=== PATIENT | female | born 1995 | race Caucasian/White ===

== ENCOUNTER 2024-06-23 12:43 | Outpatient (CLI) | payer OTHER, SELFPAY | END 2024-06-23 12:44 | disposition home or self-care (01) | LOC: AMB 06-26 08:07 | PROVIDERS: Visit Provider Family Medicine | DX: O26.892 Other specified pregnancy related conditions, second trimester (principal); R00.2 Palpitations; Z3A.16 16 weeks gestation of pregnancy | CPT/HCPCS: A0998 ==

== ENCOUNTER 2024-06-23 13:13 | Emergency (ER) | payer OTHER, SELFPAY ==
[2024-06-23 13:22] VITALS: BP 144/77; PULSE 89; RESP 18; TEMP 37.2; O2SAT 99; BMI 25.4
--- NOTE | 2024-06-23 13:45 | ED.GENADULT ---
HPI - General Adult General Chief complaint: Arrhythmia/Palpitations Stated complaint: Heart palpations Time Seen by Provider: 06/23/24 13:14 History of Present Illness HPI narrative: Patient reports feeling palpitations. This is an on?going issue for her but was especially pronounced today when she call EMS due to feeling SOB. They performed EKG and reports many PVCs. Patient is also 16 weeks preganant. 28-year-old woman presenting to the emergency department with concern of irregular heartbeats. Specifically noted to be observing PVCs today at one point she says every other beat when EMS arrived. No coupling noted. She has been having palpitations, suspects PVCs intermittently over the last 2 years but today was particularly dense. She would feel her heart ?drop? and began to feel lightheaded. Could not actually get up. And then admittedly began to panic. Did speak to friend who is a nurse and some question was raised of preeclampsia. Is 16 weeks . Working with center. This is her 1st . Does arrive with a blood pressure 144/77. May have felt what could be PACs as a fluttering past as well. Lab draw in May of this year did include a hemoglobin but no chemistries. No recent thyroid studies. Admittedly has not been doing the best job of hydrating over the last couple of days. Does not drink alcohol. No longer smoking and has cut back on stimulants. Admittedly sleep can be a challenge having overnight shifts in her work. 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 [employer] Home Medications ?Medication ?Instructions ?Recorded ?Confirmed vit no.95-ferrous 1 tab PO DAILY 06/23/24 06/23/24 fumarate 28 mg-folic acid 800 mcg tablet () Previous Rx's ?Medication ?Instructions ?Recorded labetalol 100 mg tablet 100 mg PO BID-TID PRN #12 tabs 06/23/24 Allergies Allergy/AdvReac Type Severity Reaction Status Date / Time No Known Drug Allergies Allergy Verified 06/23/24 15:32 Review of Systems Status of ROS: Reports: 6 or more systems reviewed and unremarkable except as noted in History and below [facility] Social History Smoking Status: Former smoker Do you use any of these nicotine containing products: Vaping Products How often do you have a drink containing alcohol: never AUDIT-C Alcohol total score: 0 Non-prescribed substance use: denies use Exam Narrative: Exam Narrative: Pleasant. NAD. Speaking easily. Breathing easily. Lungs appear to be clear. Heart in regular rate and rhythm. Cranial nerves 2-12 intact. Lower extremities without notable edema. She is well-perfused. Const: Vital Signs, click to edit/add: Vital Signs - 24 hr 06/23/24 13:22 Temperature 98.9 F Pulse Rate [Pulse Oximeter] 89 Respiratory Rate 18 Blood Pressure [Ri ght Upper Arm] 144/77 H Pulse Oximetry 99 Oxygen Delivery Me thod Room Air Documenting provider has reviewed patient's vital signs: yes Course Vital Signs Vital signs: Initial Vital Signs Temperature 98.9 F 06/23/24 13:22 Temperature Source Temporal Artery Scan 06/23/24 13:22 Pulse Rate 89 06/23/24 13:22 Respiratory Rate 18 06/23/24 13:22 Blood Pressure 144/77 H 06/23/24 13:22 Blood Pressure Mean 99 06/23/24 13:22 Pulse Oximetry 99 06/23/24 13:22 Oxygen Delivery Method Room Air 06/23/24 13:22 Vital Signs Temperature 98.9 F 06/23/24 13:22 Pulse Rate 89 06/23/24 13:22 Respiratory Rate 18 06/23/24 13:22 Blood Pressure 144/77 H 06/23/24 13:22 Pulse Oximetry 99 06/23/24 13:22 Oxygen Delivery Method Room Air 06/23/24 13:22 Temperature 98.9 F 06/23/24 13:22 Pulse Rate 82 06/23/24 16:00 Respiratory Rate 16 06/23/24 16:00 Blood Pressure 102/64 06/23/24 16:00 Pulse Oximetry 100 06/23/24 16:00 Oxygen Delivery Method Room Air 06/23/24 13:22 Medications Administered Medications: Discontinued Medications Generic Name Dose Route Start Last Admin Trade Name Freq PRN Reason Stop Dose Admin Sodium Chloride 1,000 mls @ 1,000 mls/hr 06/23/24 14:46 06/23/24 15:45 0.9 % Sodium Chloride 1000 Ml IV 06/23/24 15:45 Infused .Q1H ONE Infusion Medical Decision Making MDM Narrative Medical decision making narrative: Does sound as though clear diagnosis of PVCs, symptomatic. Did discuss options for further evaluation. Can offer IV hydration and cardiac monitoring. Monitor for other arrhythmia. Check chemistries, TSH. During time of monitoring, blood pressure improved. Last checked at 102 systolic. Would not appear to be related to preeclampsia. No further labs collected in this regard. Chemistries are normal. TSH still pending. Pending also magnesium level. Discussed options for continued monitoring or quantification of suspected PVCs. Ultimately settled on placing a ZIO patch. She will continue to be traveling and would like to have more information before upcoming trip as well. Pending magnesium level and TSH at time of discharge See patient discharge plan for further discussion Stay well-hydrated. Limit stimulants. Try to get quality and regular sleep. It is okay to get in a little heart pumping exercise daily. Return ZIO patch when monitoring complete and follow-up probably a week later with primary care/OB for review of results. I am not certain that abortive measures as described would be effective to stop PVCs but could be tried. Return for recurrence of persistent, dense, symptoms. Lab Data Lab results reviewed: Yes I reviewed the patient's lab results Labs: Lab Results 06/23/24 06/23/24 Range/Units 14:58 16:22 Hgb 13.7 (12.0-16.0) gm/dL Sodium 135 (135-149) mmol/L Potassium 3.9 (3.6-5.1) mmol/L Chloride 105 (96-114) mmol/L Carbon Dioxide 23 (20-32) mmol/L Anion Gap 7 (7-15) mEq/L BUN 8 (5-24) mg/dL Creatinine 0.6 (0.5-1.5) mg/dL Estimated Creat Clear 119.47 Estimated GFR 125 ml/min Glucose 92 (60-115) mg/dL Calcium 9.0 (8.4-10.6) mg/dL Magnesium 1.9 (1.5-2.6) mg/dL TSH 2.550 (0.270-4.20) uIU/mL Lab Acknowledgement Test Added ECG Data Attestation: I personally reviewed and interpreted this ECG as follows: (Normal sinus rhythm. Looks like there is sinus arrhythmia. Rate of 92.) Discharge Plan Discharge Clinical Impression: Symptomatic PVCs Patient Disposition: Home w/ Parent or Adult Condition: Improved Instructions: Premature Ventricular Contractions (ED) Additional Instructions: Stay well-hydrated. Limit stimulants. Try to get quality and regular sleep. It is okay to get in a little heart pumping exercise daily. Return ZIO patch when monitoring complete and follow-up probably a week later with primary care/OB for review of results. I am not certain that abortive measures as described would be effective to stop PVCs but could be tried. Return for recurrence of persistent, dense, symptoms. Prescriptions: New labetalol 100 mg tablet 100 mg PO BID-TID PRNQty: 12 0RF No Action PNV cmb#95-ferrous fumarate-FA [] 28 mg iron- 800 mcg tablet 1 tab PO DAILY Follow Up/Referrals: Provider,Not a Local [Primary Care Provider] - Stand Alone Forms: [employer] Info Instructions
--- OUTSIDE RECORDS SUMMARY | 2024-06-23 14:53 | XMS_ITS | Encounter Summary ---
Author Organization [facility], [facility] Address [address] [place] [address] Care Team Providers Care Director Loan Name Role Phone Needs Pcp, Assignment Primary Care Provider [phone] Encounter Details Date Type Department Care Team (Late st Contact Info) Description 04/06/2024 [facility] [address] [place] [address] Mychart, [place] [address] Social History Tobacco Use Types Packs/Day Years Used Date Smoking Tobacco: Former Cigarettes Smokeless Tobacco: Never Comments:1pk/2weeks; Stopped vaping 2020 Alcohol Use Standard Drinks/Week Comments Not Currently 0 (1 standard drink = 0.6 oz pur e alcohol) Sober x 3 years PHQ-2 Answer Date Recorded PHQ-2 Score 0 12/17/2022 Depression Answer Date Recor ded Last EPDS Total Score 10 05/08/2024 Last EPDS Self Harm Result Not on file 05/08 Comments No Sex and Gender Information Value Date Recorded Sex Assigned at Not on file Legal Sex Female 1:07 PM CDT Gender Identity Not on file Sexual Orientation Not on file Occupation Industry Job Start Date Job End Date Student Not on file Not on file 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
--- OUTSIDE RECORDS SUMMARY | 2024-06-23 14:53 | XMS_ITS | Continuity of Care Document ---
Author Organization [place] - [employer], Main Office Address [address] [place] [phone] Assessment Encounter Date Assessment Date Assessment LastModified by Organization Details LastModified Time 06/20/2024 06/20/2024 A: 28yo with SIUP at 16 weeks with reassuring maternal and status P: - RTC in 4 weeks. - Reviewed ISAEL. ISAEL of 12/06/24 based on LMP and early dating US. - Discussed genetic screening. Had this done with previous provider, [facility]. 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 Declines wanting to see a genetic counselor. - Discussed nutrition and exercise in . - Discussed constipation relief measures including increasing fiber, hydration, exercise, and dietary changes. - Reviewed diet diary. - Discussed with implants. Her implants are beneath her muscle and does not interfere with ability to breastfeed. - Reviewed recommended immunizations. She is planning to vaccinate. - Reviewed Covid protocols. - Discussed anatomy scan for 20 weeks. - Discussed her ctvgow-in-azc genetic heart condition and if that affects her baby heart development. - Discussed handout. - Discussed FPNV labs results that were performed with [facility]. - Reviewed THC/tobacco policy. - Discussed peds care. -Discussed car seats. - Discussed intercourse in /PP. - Discussed normal vs abnormal vaginal discharge during . - Discussed how untreated vaginal infections affect and labor. - Call with questions or concerns. Time spent: 70 minutes education time spent: 10 minutes Performed by Konstantin Weeks CNM under the direct supervision of Rylee Trejo APRN, CNM [email or web address] Not available 06/20/2024 19:24:00 Plan of Treatment Reminders Order Date Submit Date Provider Last Modified By Organization Details Last Modified Time Details Appointments Ultraso und Anatomy Scan 2024 04:00P M Ultrasound Not available Not available Not available PNV 2024 05:00P M Recovery Assistant 1 Not available Not available Not available Lab None recorde d. Referral None recorde d. Procedures None recorde d. Surgeries None recorde d. Imaging None recorde d. Medication Orders None recorde d. Patient TargetsNo targets recorded. Patient InstructionsNo instructions recorded. Reason for Referral None Reported. Problems Name Problem SNOMED Code Status Onset Date Resolution Date Notes Provider Name and Address Organization Details Recorded Time 17907861 Active 025 Morenita Magallanes [address] [place] [address], [phone] , [employer] 15:34:24 Problem Notes None recorded. Procedures Surgical History Date Name Laterality Status Provider Name and Address Organization Details Recorded Time 12/21/19 24 Date of Last Pap Smear completed Morenita Magallanes [address] [place] [address], [phone], [employer] 05/25/2024 16:00:29 Breast augmentation w/implt completed Morenita Magallanes [address] [place] [address], [phone], [employer] 05/25/2024 15:24:53 Imaging Results None recorded. Procedure Notes None recorded. Medical Equipment None Reported. Allergies No known drug allergies Medications Name Sig Start Date Stop Date Status Note LastModified by Organization Details LastModified Time Claravis 40 mg capsule TAKE ONE CAPSULE BY MOUTH ONCE DAILY WITH FOOD 05/25 completed Not Available Not Available Not Available Unisom (doxylamine) prn active Not Available Not Available Not Available + DHA active Not Available Not Available Not Available [employer] 45 mg-3.75 mg-50 mg chewable tablet Take as needed by oral route. active Not Available Not Available No t Available Vitals Date Recorded Body weight Body mass index (BMI) Body height Heart rate Systolic blood pressure Diastolic blood pressure Provider Name and Address Organization Details Last Updated DateTime 5 26197.6 7076 g 25.4 kg/m2 162.56 cm 68 /min 120 mm[Hg] 80 mm[Hg] ChaDania Page [address] [place], [phone], [employer] 11:50:29 Social History Question Answer Notes LastModified by Jason dockery Details LastModified Time Tobacco Smoking Status Former Smoker vaping from 2021 to 01/2024 Morenita Magallanes [address] [place], [address], [employer] 05/25/2024 16:40:58 What Is Your Level Of Alcohol Consumption? None Information not available 05/25/2024 What Is Your Level Of Caffeine Consumption? Moderate 1 Cup Coffee Daily, Black Tea Occasionally Information not available 05/25/2024 Are You Currently Employed? Yes Information not available 05/25/2024 What Type Of Diet Are You Following? SPECIFIC Lactose Free Information not available 05/25/2024 What Is The Highest Grade Or Level Of School You Have Completed Or The Highest Degree You Have Received? 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 3-4 Times Per Week Walking, Weight Lifting 3 Days/week Information not available 05/25/2024 When Did You Quit Smoking? 1-5yearssin celastcigar ette 01/2024 Then Nicorette Gum Until 4-5w Information not available 05/25/2024 Do You Work In Healthcare? Yes Information not available 05/25/2024 How Many Children Do You Have? 0 Information not available 05/25/2024 Do You Have Any Pets? Yes 2 Cats Information not available 05/25/2024 What Is Your Relationship Status? Information not available 05/25/2024 Do You Use Your Seat Belt Or Car Seat Routinely? Yes Information not available 05/25/2024 Do You Feel Stressed (tense, Restless, Nervous, Or Anxious, Or Unable To Sleep At Night)? [id number] Information not available 05/25/2024 Do You Use Any Illicit Or Recreational Drugs? No Information not available 05/25/2024 Are You Currently In School? No Information not available 05/25/2024 What Is Your Status? Information not available 05/25/2024 Do You Feel Safe In Your Relationship? Yes Information not available 05/25/2024 Sex: Female Functional Status Question Answer Note LastModified by Organization D etails LastModified Time Are you able to care for yourself? Yes Information not available 05/25/2024 What is your exercise level? Moderate Information not available 05/25/2024 Mental Status None recorded. Family History Relationship Description Onset Age of this Age Resolved Age Notes LastModified by Organization Details LastModified Time Mother Stillbirth 5 months Not available 05/25/2024 16:42:49 Mother Premature delivery 2 babies born at 36w Not available 05/25/2024 16:43:01 Mother Depressive disorder after her mom's dad and sister and throug h menopa use Not available 05/25/2024 16:43:45 Mother Recurrent miscarriage had severa l miscar riages Not available 05/25/2024 16:44:35 Father Alcoholism Not availa ble 05/25/2024 16:44:00 Medical History Condition Response Allergies (Food, seasonal, environmental ) N Eating Disorder N Drug/Latex Allergies/Reactions N History of abnormal pap Y Headaches N GI Problems Y Gynecological History Statement/Question Response Abnormal Pap Y Flow Light Frequency of Cycle (Q days) 29 STIs/STDs N Menses Monthly Y Date of Last Pap Smear 12/21/2023 Duration of Flow (days) 2 Age at Menarche 13 LMP Definite Obstetrics History GPAL:G 1 P 0 0 0 0 Past Encounters Encounter ID Performer Location Encounter Start Date Encounter Closed Date Diagnosis/Indication Diagnosis SNOMED-CT Code Diagnosis ICD10 Code Diagnosis Note [id number] Morenita Magallanes Main Office [address] [place] [phone] 05/25/2024 15:55:42 05/25/2024 17:30:17 [id number] SANIA RIGGS Main Office [address] [place] [phone] 06/20/2024 10:50:18 06/20/2024 16:24:20 Normal 49892355 Z34.02 Z3A.16 Health Concerns Section Related Observation LastModified by Organization Yefri nava LastModified Time None Recorded Concern Status LastModified by Organization Details LastModified Time None Recorded Payers Encounter Date Sequence Insurance Name Policy Number Policy Hidalgo Covered Member ID Hidalgo Member ID Guarantor Name 06/20/2024 1 [facility] [id number] Dianelys Verdin [id number] Dianelys Verdin Notes Date Note Type Note Provider Name and Address Organization Details Recorded Time 06/20/2024 text/html Pt presents with Bart for PNV today. Reports: nausea decreased once entering the second trimester. Taking senna and metamucil for constipation. Reports having BM's every 2-3 days. Reports eating beans, chickpeas, apples, and other fruits for fiber. She eats at least 15grams of fiber daily. She drinks Naked with less sugar smoothies. She drinks water, herbal tea, 1 cup of coffee, Propel daily. She drinks protein shakes during work, and eats protein bar and nuts for snacks. She eats a lot of protein daily with a variety of fruits, vegetables, whole-grain, and proteins. She goes on daily walks for exercise. She just moved into a new home so she has been unpacking boxes lately. She plans to start weight lifting, biking, yoga and doing the treadmill again. LMP: 02/28/25. Bart's father had open heart surgery because he has bicuspid aortic valve (BAV) which is a genetic condition where he has 2 heart valves, instead of 3. Bart has not been tested for this condition and does not have any cardiac symptoms. Bart does not plan on getting tested for this condition unless he starts showing symptoms. She has an at home doppler at home and listens to baby heartbeat once a week. 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 She has started to feel fluttering. She has breast implants underneath her muscles specifically to allow for . Reports noticing an ingrown hair lump next to her labia, 2 months ago, after shaving. States it looked like a white head, so she put benzyl peroxide on it without relief. She is concerned that it may be a cyst or infected. Denies abnormal discharge or vaginal odor. Denies pain to the lump. Reports itchiness to the lump. Denies any changes since shaving again. Denies noticing any other lumps to her labia or vagina. Questions: with implants, consultants, appropriate weight gain during , GDM treatment, normal vs abnormal vaginal discharge, vaginal infections during and its effect on and labor, PP expectations and procedures at [facility]. Endorses movement. No further questions or concerns at this time. RYLEE WU, ROSALBA-WILDER [address] [facility] [place], [address], [employer] 06/20/2024 19:26:44 OBGyn Episode Ob Episode Information Episode Created Date Number of Fetuses Patient Bloodtype Patient rh Status Prepregnancy Weight lbs Domestic Partner Domestic Partner Phone Father Name Foster Care Therapist Status 05/26/19 25 1 A Positive Bart OPEN Fetus Data First Name Last Name Admitted to NICU Weight (g) Sex Living Outcome Pediatric Complications Fetus ID Race Codes Race Delivery Type [id number] Isael Calculation Initial Isael Date Initial Exam Date Initial Exam Provider Initial Ultrasound Date Last Menstrual Period Date Ultra Sound Weeks Gestation 12/05/2024 05/25/2024 04/28/2024 02/29/2024 8 Eighteen To Twenty Week Isael Update Ultra Sound Date Fundal Height At Umbil Quickening Date Ultra Sound Latest Weeks Gestation Final Isael Confirmed By Final Isael Confirmed Date Final Isael Date Ultra Sound Latest Days Gestation 0 0 Pre- Flowsheet Flowsheet Date 05/25/2024 Lopez Score Blood Edema Fundus Height Fundus Units Glucose Ketones Leukocytes Nitrite Labor Signs Protein Cervic Dilation Cervic Effacement Cervic Station Type Weight in lbs Pre/Post Dialysis Refused Stated 125.127961533864 BP Diastolic BP Location Tested BP Systolic BP Type Fetus Heart Rate Present Fetus Movement Comments Flowsheet Date 06/20/2024 Lopez Score Blood Edema Fundus Height Fundus Units Glucose Ketones Leukocytes Nitrite Labor Signs Protein Cervic Dilation Cervic Effacement Cervic Station none none Type Weight in lbs Pre/Post Dialysis Refused 148.203453809334 BP Diastolic BP Location Tested BP Systolic BP Type 80 120 Fetus Heart Rate Present A 150 Fetus Movement A Yes Comments fundus U-2 Menstrual History Last Menstrual Date Menses Monthly On Bcp Conception Prior Menses Frequency Hcg Plus Date Menarche Onset Age 1202/29/2024 true 29 Delivery Information Delivery Date Delivery Type Labor Anesthesia Weeks Gestation Incision Type Labor Labor Length Hrs Delivered By Post Complications Tubal Sterilization Discharge Date Comments Discharge Information Feeding Method Contraceptive Method Maternal HG B and HCT Levels
--- OUTSIDE RECORDS SUMMARY | 2024-06-23 14:53 | XMS_ITS | Data Portability ---
Author Organization [employer], [employer] Address [address] [place] [address] Assessment Encounter Date Assessment Date Assessment LastModified by Organization Details LastModified Time 05/25/2024 05/25/2024 History and intake completed. Reviewed manual, diet diary instructions and class information. Information also emailed to Monse. All midwifery consent forms signed and questions answered. Monse and Bart are interested in hiring health safety engineer software engineer intern. Monse has some concerns regarding not doing continuous monitoring in labor and what happens in emergency but she really does want to have an unmedicated . Discussed that if there is something concerning with FHR that staff would listen more frequently. Reviewed emergency equipment, medications at center and proximity to [facility] and [facility]. OR is one thing that is not available at center. Encouraged her to continue to bring up her feelings and concerns and that ultimately want her to feel comfortable/conf ident with where she chooses to deliver. Discussed heart palpitations and suggested monitoring for increased frequency. Reassuring that she is not dizzy or light headed and informed this can be normal in first trimester. Can refer to cardiology if she is concerned or if it is happening more frequently. Recommended electrolytes daily for headaches and heart palpitations. Suggested magnesium citrate for constipation. Bart asks about making sure he gets Monse to the center. Will get information through childbirth ed and visits about when to call in labor. Reassured him that with first baby there will likely be lots of time to get to the center. 34 minutes spent with Monse. Not available 05/25/2024 17:36:29 06/20/2024 06/20/2024 A: 28yo with SIUP at [...] scan for 20 weeks. - Discussed her pjfhet-ps-vtr genetic heart condition and if that affects [...] available Not available PNV 2024 05:00P M Corporate Travel Manager 1 Not available Not available Not available Lab None recorde d. Referral None recorde d. Procedures None recorde d. Surgeries None recorde d. Imaging None recorde d. Medication Orders None recorde d. Patient TargetsNo targets recorded. Patient Instructions Encounter Date Encounter Id Patient Instructions Last Modified By Organization Details Last Modified Time 05/25/2024 [id number] 1. FPNV schedule d on 06/20/24. Anatomy scan and PNV also scheduled in July. 2. Complete diet diary. 3. Call with questions/concern kory joshua Not available 05/25/2024 17:16:49 Reason for Referral None Reported. Problems Name Problem SNOMED Code Status Onset Date Resolution Date Notes Provider Name and Address Organization Details Recorded Time 74828700 Active 025 [place], [address] , [employer] 15:34:24 Problem Notes None recorded. Procedures Surgical History Date Name Laterality Status Provider Name and Address Organization Details Recorded Time 12/21/19 Date of Last Pap Smear completed Moren[place], [address], [employer] 05/25/2024 16:00:29 Breast augmentation w/implt completed [place], [address], [employer] 05/25/2024 15:24:53 Imaging Results None recorded. Procedure [...] active Not Available Not Available Not Available [employer] 45 mg-3.75 mg-50 mg chewable tablet Take as needed by oral route. active Not Available Not Available No t Available Vitals Date Recorded Body height Body mass index (BMI) Body weight Provider Name and Address Organization Details Last Updated DateTime 05/25/2024 162.56 cm 21.5 kg/m2 75321.05 g Morenita Magallanes [address] [place] [address], [phone], [employer] 05/25/2024 15:58:37 Date Recorded Body weight Body mass index (BMI) Body height Heart rate Systolic blood pressure Diastolic blood pressure Provider Name and Address Organization Details Last Updated DateTime 5 33053.6 7076 g 25.4 kg/m2 162.56 cm 68 /min 120 mm[Hg] 80 mm[Hg] [place], [address], [employer] 11:50:29 Social History Question Answer Notes LastModified by Organizat ion Details LastModified Time Tobacco Smoking Status Former Smoker vaping from 2021 to 01/2024 Morenita Magallanes [address] [facility] [place], [address], [employer] 05/25/2024 16:40:58 What Is Your Level Of [...] Or The Highest Degree You Have Received? [id number] Information not available 05/25/2024 What Is Your [...] Anxious, Or Unable To Sleep At Night)? [id number] Information not available 05/25/2024 Do You Use [...] seasonal, environmental ) N Eating Disorder N History of abnormal pap Y Headaches N GI Problems Y Drug/Latex Allergies/Reactions N Gynecological History Statement/Question Response Abnormal Pap Y [...] SNOMED-CT Code Diagnosis ICD10 Code Diagnosis Note [id number] Morenita Magallanes Main Office [address] [place] [address] 05/25/2024 15:55:42 05/25/2024 17:30:17 [id number] SANIA RIGGS Main Office [address] [place] [address] 06/20/2024 10:50:18 06/20/2024 16:24:20 Normal 83229929 Z34.02 Z3A.16 Health Concerns Section Related Observation LastModified by Organization Yefri nava LastModified Time None Recorded Concern Status LastModified by Organization Details LastModified Time None Recorded Advance Directives Directive None Recorded Payers Encounter Date Sequence Insurance Name Policy Number Policy Hidalgo Covered Member ID Hidalgo Member ID Guarantor Name 05/25/2024 1 [facility] [id number] Dianelys Verdin [id number] Dianelys Verdin 06/20/2024 1 [facility] A0021 Dianelys Verdin [id number] Dianelys Verdin Notes Date Note Type Note Provider Name and Address Organization Details Recorded Time 05/25/2024 text/html Telehealth visit with audio and video with Della. LMP 02/29/2024 with regular 29 day cycles (occasionally 30 or 31). Not actively trying or preventing . Transfer into care from , had labs, NIPT and early ultrasound. Early ultrasound ISAEL 12/06/2024. Carrier screening showed she is a carrier for intermediate X; has one copy that has 30 (normal) and one copy has 50. This is a precursor for fragile X (at 200 copies) which could happen down the line. She was advised to see a genetic counselor but she did not feel this was necessary. Monse reports nausea, bloating, constipation, headaches, dizziness (if stands up too quickly), mood changes and fatigue. Getting adequate food/fluids in. Works rotating days/nights and sometimes has difficulty sleeping. Monse states she has been having heart palpitations and they are worse during sex. They started prior to but seem to be more frequent now. She did mention to previous provider. Previous provider did not hear murmur but Monse thought she heard one when she listened which would be new for her. Plans to breastfeed and does not have concerns about her anatomy. Has breast implants that are under the muscle and did this so that it would not affect the breast tissue. Says her nipples are very light pink and the color hasn't really changed so far but she has noticed a ridge around and they are more everted. Would really like to exclusively breastfeed for first 3 months at least. Last pap 01/2024, normal and HPV negative. Has had abnormal paps in the past with LSIL, ASCUS and + high risk HPV. 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 Eats prunes and fiber. Family history significant for stillbirth, miscarriages, , alcoholism, depression. Bart has a nephew with severe autism and also has addiction, alcoholism and anxiety/depression on his side. Morenita Magallanes [address], [place], [address], [employer] [facility] 05/30/2024 10:42:19 06/20/2024 text/html Pt presents with Bart for [...] and labor, PP expectations and procedures at [facility]. Endorses movement. No further questions or concerns at this time. RYLEE TREJO, ROSALBA-CNM [address], [place], [address], [place] [employer] [facility] 06/20/2024 19:26:44 OBGyn Episode Ob Episode Information Episode Created Date Number of Fetuses Patient Bloodtype Patient rh Status Prepregnancy Weight lbs Domestic Partner Domestic Partner Phone Father Name Hospice Plan Administrator Status 05/26/19 25 1 A Positive Bart [...] Weight in lbs Pre/Post Dialysis Refused Stated 125.603011577508 BP Diastolic BP Location Tested BP Systolic BP Type Fetus Heart Rate Present Fetus Movement Comments Flowsheet Date 06/20/2024 Lopez Score Blood Edema Fundus Height Fundus Units Glucose Ketones Leukocytes Nitrite Labor Signs Protein Cervic Dilation Cervic Effacement Cervic Station none none Type Weight in lbs Pre/Post Dialysis Refused 148.719961311295 BP Diastolic BP Location Tested BP Systolic [...]
--- OUTSIDE RECORDS SUMMARY | 2024-06-23 14:54 | XMS_ITS | Clinical Summary ---
Author Organization [facility] er Address [address] [place] [address] Care Team Providers Care Director Of Primary Name Role Phone Eric Phan MD Primary Care Provider [phone] Allergies No known active allergies Medications spironolactone (ALDACTONE) 100 MG tablet Take 1 tablet (100 mg total) by mouth 2 (two) times a day Active Multiple Vitamins-Mineral s (Daily Multivitamin) capsule Take by mouth Active Social History Tobacco Use Types Packs/Day Years Used Date Smoking Tobacco: Never Assessed Comments Unknown Sex and Gender Information Value Date Recorded Sex Assigned at Not on file Legal Sex Female 4:08 PM CDT Gender Identity Not on file Sexual Orientation Not on file Last Filed Vital Signs Vital Sign Reading Time Taken Comments Blood Pressure 124/75 10/06/2022 4:17 PM CDT Pulse 73 10/06/2022 4:17 PM CDT Temperature 36.8 C (98.3 F) 10/06/2022 4:17 PM CDT Respiratory Rate 16 10/06/2022 4:17 PM CDT Oxygen Saturation 98% 10/06/2022 4:17 PM CDT Inhaled Oxygen Concentration - - Weight 59.9 kg (132 lb) 10/06/2022 4:17 PM CDT Height 160 cm (5' 3) 10/06/2022 4:17 PM CDT Body Mass Index 23.38 10/06/2022 4:17 PM CDT Plan of Treatment Health Maintenance Due Date Last Done Comments COVID-19 Vaccine ( season) 2023 04/14/2021, 08/21/2020, 07/24/2020 Pap Smear 12/18/2024 12/18/2021, 01/23/2021 DTaP,Tdap,and Td Vaccines (8 - Td or Tdap) 04/28/2027 04/28/2017, 09/10/2006, 10/30/1999, Additional history exists HPV Vaccines Completed 01/30/2020, 12/06, 11/04/2018 Influenza Vaccine Completed 01/11/2024, , 01/16/2022, Additional history exists Pneumococcal Vaccine: Pediatrics (0 to 5 Years) and At-Risk Patients (6 to 49 Years) Aged Out No longer eligible based on patient's age to complete this topic Care Teams Director Of Primary Relationship Specialty Start Date End Date Eric Phan MD [address] [place] [phone] PCP - General Family Medicine 10/06/22
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
--- OUTSIDE RECORDS SUMMARY | 2024-06-23 14:54 | XMS_ITS | Encounter Summary ---
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 A foreclosure clerk will contact you to assist you in setting up this appointment. If you have not been contacted within one week or have any questions, please call [phone]. We suggest you call your health insurance company about your coverage and benefits for this appointment. Question Answer Appointment Urgency? Non-Urgent Multiple Gestation? [facility] Genetic Counselor Consult Indications for Genetic Counseling positive carrier screening Encounter Details Date Type Department Care Team (Late st Contact Info) Description 05/09/2024 Results Follow-Up [facility]-ROCK ROOM WORKER [address], [address] [place] [address] Mimi Shields APRN, CNM [address] [facility] [address] [place] [address] Social History Tobacco Use Types Packs/Day Years [...] on file documented as of this encounter Progress Notes * Mimi Shields APRN, CNM - 05/09/2024 2:56 PM CST Normal labs. Message sent to patient via [employer]. ITAL TRAY SERVICE WORKER * Mimi Shields APRN, CNM - 05/09/2024 10:51 AM CST Normal initial labs. Message sent via [employer]. 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
--- OUTSIDE RECORDS SUMMARY | 2024-06-23 14:54 | XMS_ITS | Encounter Summary ---
Author Organization [facility] Address [address] [address] Care Team Providers Care Pilot Plant Operator Name Role Phone Needs Pcp, Assignment Primary Care Provider Encounter Details Date Type Department Care Team (Late st Contact Info) Description 05/08/2024 12:20 PM CROTCH PIECE BASTER Lab Visit [facility] [address] [place] [address] Supervision of normal first , antepartum Social History Tobacco Use Types Packs/Day Years [...] on file documented as of this encounter Procedures Procedure Name Priority Date/Time Associated Diagnosis Comments RUBELLA IMMUNE STATUS, IGG Routine 05/08/2024 12:32 PM CROTCH PIECE BASTER Supervision of normal first , antepartum ANTIBODY SCREEN Routine 05/08/2024 12:32 PM CROTCH PIECE BASTER Supervision of normal first , antepartum BLOOD TYPE Routine 05/08/2024 12:32 PM CROTCH PIECE BASTER Supervision of normal first , antepartum HORIZON CARRIER SCREENING Routine 05/08/2024 12:32 PM CROTCH PIECE BASTER Supervision of normal first , antepartum PANORAMA NIPT Routine 05/08/2024 12:32 PM CROTCH PIECE BASTER Supervision of normal first , antepartum SYPHILIS PANEL (WITH REFLEX) Routine 05/08/2024 12:32 PM CROTCH PIECE BASTER Supervision of normal first , antepartum SYPHILIS PANEL (WITH REFLEX) Routine 05/08/2024 12:32 PM CROTCH PIECE BASTER Supervision of normal first , antepartum HEPATITIS B SURFACE ANTIBODY Routine 05/08/2024 12:32 PM CROTCH PIECE BASTER Supervision of normal first , antepartum HIV 1/2 AG/AB 4TH GEN Routine 05/08/2024 12:32 PM CROTCH PIECE BASTER Supervision of normal first , antepartum COMPLETE BLOOD COUNT-NO DIFF Routine 05/08/2024 12:32 PM CROTCH PIECE BASTER Supervision of normal first , antepartum HEPATITIS C ANTIBODY, WITH REFLEX Routine 05/08/2024 12:32 PM CROTCH PIECE BASTER Supervision of normal first , antepartum HBSAG (HEPATITIS B SURFACE AG) Routine 05/08/2024 12:32 PM CROTCH PIECE BASTER Supervision of normal first , antepartum HEPATITIS B CORE,AB Routine 05/08/2024 1 2:32 PM CROTCH PIECE BASTER Supervision of normal first , antepartum HGB A1C Routine 05/08/2024 12:32 PM CROTCH PIECE BASTER Supervision of normal first , antepartum documented in this encounter Results * Syphilis Panel, with Reflex (05/08/2024 12:32 PM CROTCH PIECE BASTER) Pathologist [facility] Treponema Screen Interpretation Non Reactive Non Reactive 05/08/2024 5:57 PM CROTCH PIECE BASTER [facility] Syphilis Panel Comment Negative - No serological evidence of syphilis. 05/08/2024 5:57 PM CROTCH PIECE BASTER [facility] Blood Venipuncture / Unknown 05/08/2024 12:32 PM CROTCH PIECE BASTER 05/08/2024 12:32 PM CROTCH PIECE BASTER us Mimi Shields APRN, CNM LAB_1 Final Result [facility] [address] [place] [address] * Horizon Carrier Screening (05/08/2024 12:32 PM CROTCH PIECE BASTER) Pathologist [facility] Horizon Carrier Screening See Scanned Report 05/18/2024 4:47 PM CDT [facility]. Blood Venipuncture / Unknown 05/08/2024 12:32 PM CROTCH PIECE BASTER 05/08/2024 12:32 PM CROTCH PIECE BASTER us Mimi Shields APRN, CNM LAB_1 Final Result [facility]. [address] [place] [address] * Panorama NIPT (05/08/2024 12:32 PM CROTCH PIECE BASTER) [facility] Panorama NIPT See Scanned Report 05/14/2024 7:14 AM CDT [facility]. Blood Venipuncture / Unknown 05/08/2024 12:32 PM CROTCH PIECE BASTER 05/08/2024 12:32 PM CROTCH PIECE BASTER us Mimi Shields APRN, WILDER LAB_1 Final Result [employer] [address] [place] [address] * Rubella Immune Status, IgG (05/08/2024 12:32 PM CROTCH PIECE BASTER) Pathologist [facility] Rubella Units 1.61 05/09/2024 9:48 AM CROTCH PIECE BASTER [facility] Comment:The magnitude of the measured result, above the cutoff, is not indicative of the amount of antibody present. Rubella Intepretation Immune Immune 05/09/2024 9:48 AM CROTCH PIECE BASTER [facility] Blood Venipuncture / Unknown 05/08/2024 12:32 PM CROTCH PIECE BASTER 05/08/2024 12:32 PM CROTCH PIECE BASTER Mimi Shields APRN, WILDER LAB_1 Final Result Performing Organization Address [facility]/ZIP Co de Phone Number [facility] [address] [place] [address] * HIV 1/2 Ag/Ab 4th Generation (05/08/2024 12:32 PM CROTCH PIECE BASTER) [facility] HIV 1/2 Antigen/Antib saundra (4th generation) Negative (Non Reactive) Negative (Non Reactive) 05/08/2024 5:32 PM CROTCH PIECE BASTER [facility] Comment:HIV-1 p24 Antigen an d HIV-1/HIV-2 Antibody not detected Blood Venipuncture / Unknown 05/08/2024 12:32 PM CROTCH PIECE BASTER 05/08/2024 12:32 PM CROTCH PIECE BASTER Mimi Shields APRN, WILDER LAB_1 Final Result Performing Organization Address City/[facility] Co de Phone Number [facility] [address] [place] [address] * Hgb A1C (05/08/2024 12:32 PM CROTCH PIECE BASTER) [facility] Hemoglobin A1C 5.0 <=5.6 % 05/08/2024 9:00 PM [facility] PIECE B[facility] Estimated Average Glucose (Calc) 97 < 117 mg/dL 05/08/2024 9:00 PM CROT[employer] PIECE BASTER [facility] Comment:Estimated average gl ucose (eAG) converts A1c into glucose units (mg/dL) and estimates average glucose over the past approximately 3 months. The eAG reference interval (<117 mg/dL) corresponds to an A1c of <5.7%. Blood Venipuncture / Unknown 05/08/2024 12:32 PM CROTCH PIECE BASTER 05/08/2024 12:32 PM CROTCH PIECE BASTER Mimi Shields APRN, WILDER LAB_1 Final Result Performing Organization Address [facility]/ZIP Co de Phone Number [facility] [address] * Hepatitis C Antibody, with Reflex (05/08/2024 12:32 PM CROTCH PIECE BASTER) Hepatitis C Antibody Negative (Non Reactive) Negative (Non Reactive) 05/08/2024 5:32 PM CROTCH PIECE BASTER [facility] Comment:Antibodies to HCV no t detected. Does not exclude the possiblity of exposure to HCV. Blood Venipuncture / Unknown 05/08/2024 12:32 PM CROTCH PIECE BASTER 05/08/2024 12:32 PM CROTCH PIECE BASTER Mimi Shields APRN, WILDER LAB_1 Final Result Performing Organization Address [facility]/ZIP Co de Phone Number [facility] [address] * Hepatitis B Core Antibody (05/08/2024 12:32 PM CROTCH PIECE BASTER) Hepatitis B Core Antibody Negative (Non Reactive) Negative (Non Reactive) 05/08/2024 5:55 PM CROTCH PIECE BASTER [facility] Blood Venipuncture / Unknown 05/08/2024 12:32 PM CROTCH PIECE BASTER 05/08/2024 12:32 PM CROTCH PIECE BASTER Mimi Shields APRN, WILDER LAB_1 Final Result Performing Organization Address City/[facility]/ZIP Co de Phone Number [facility] [address] [place] [address] * Hepatitis B Surface Antibody (05/08/2024 12:32 PM CROTCH PIECE BASTER) Pathologist [facility] Hep B Surf Antibody Result 50.9 mIU/mL 05/08/2024 5:56 PM CROTCH PIECE BASTER [facility] Hep B Surf Antibody Interpretation Positive (Reactive) Positive (Reactive) 05/08/2024 5:56 PM CROTCH PIECE BASTER [facility] Comment:Individual is consid ered immune to HBV infection. Blood Venipuncture / Unknown 05/08/2024 12:32 PM CROTCH PIECE BASTER 05/08/2024 12:32 PM CROTCH PIECE BASTER Mimi Shields APRN, CNM LAB_1 Final Result Performing Organization Address [facility] Co de Phone Number [facility] [address] [place] [address] * Hepatitis B Surface Antigen (05/08/2024 12:32 PM CROTCH PIECE BASTER) Pathologist [facility] Hepatitis B Surface Antigen Negative (Non Reactive) Negative (Non Reactive) 05/08/2024 5:56 PM CROTCH PIECE BASTER [facility] Blood Venipuncture / Unknown 05/08/2024 12:32 PM CROTCH PIECE BASTER 05/08/2024 12:32 PM CROTCH PIECE BASTER Mimi Shields APRN, CNM LAB_1 Final Result Performing Organization Address [facility]/ZIP Co de Phone Number [facility] [address] [place] [address] * (ABNORMAL) Complete Blood Count-No Diff (05/08/2024 12:32 PM CROTCH PIECE BASTER) Pathologist [facility] WBC 8.5 3.5 - 10.5 x10(9)/L 05/08/2024 1:49 PM CROTCH PIECE BASTER [facility] RBC 4.33 3.90 - 5.03 x10(12)/L 05/08/2024 1:49 PM CROTCH PIECE BASTER [facility] Hemoglobin 13.7 12.0 - 15.5 g/dL 05/08/2024 1:49 PM [facility] HCT 38.4 34.9 - 44.5 % 05/08/2024 1:49 PM [facility] MCV 88.7 80.0 - 100.0 fL 05/08/2024 1:49 PM [facility] MCH 31.6 27.6 - 33.3 pg 05/08/2024 1:49 PM [facility] MCHC 35.7(H) 31.5 - 35.2 g/dL 05/08/2024 1:49 PM [facility] RDW 11.5(L) 11.9 - 15.5 % 05/08/2024 1:49 PM [facility] Platelets 224 150 - 450 x10(9)/L 05/08/2024 1:49 PM [facility] Blood Venipuncture / Unknown 05/08/2024 12:32 PM CROTCH PIECE BASTER 05/08/2024 12:32 PM CROTCH PIECE BASTER Mimi Shields APRN, CNM LAB_1 Final Result [facility] [address] [place] [address] * Blood Type (05/08/2024 12:32 PM CROTCH PIECE BASTER) ABO A 05/08/2024 7:14 PM CROTCH PIECE BASTER [facility] Positive 05/08/2024 7:14 PM CROTCH PIECE BASTER [facility] Blood Venipuncture / Unknown 05/08/2024 12:32 PM CROTCH PIECE BASTER 05/08/2024 12:32 PM CROTCH PIECE BASTER us Mimi Shields APRN, CNM LAB_1 Final Result [facility] [address] [place], [place] [address] * Antibody Screen (05/08/2024 12:32 PM CROTCH PIECE BASTER) Antibody Screen Interpretation Negative 05/08/2024 7:14 PM CROTCH PIECE BASTER [facility] Blood Venipuncture / Unknown 05/08/2024 12:32 PM CROTCH PIECE BASTER 05/08/2024 12:32 PM CROTCH PIECE BASTER us Mimi Shields APRN, CNM LAB_1 Final Result [facility] [address] [place] [address], [facility] documented in this encounter Visit Diagnoses Diagnosis Supervision of normal first , antepartum documented in this encounter Care Teams Pilot Plant Operator Relationship Specialty Start Date End Date Needs Pcp, [place] [address] PCP - General 04/28/17 documented as of this encounter
--- OUTSIDE RECORDS SUMMARY | 2024-06-23 14:54 | XMS_ITS | Continuity of Care Document ---
Author Organization [employer], Main Office Address [address] [place] [address] Assessment Encounter Date Assessment Date Assessment LastModified by Organization Details LastModified Time 05/25/2024 05/25/2024 History and intake completed. Reviewed manual, diet diary instructions and class information. Information also emailed to Monse. All midwifery consent forms signed and questions answered. Monse and Bart are interested in hiring senior field engineer record label intern. Monse has some concerns regarding not doing continuous monitoring in labor and what happens in emergency but she really does want to have an unmedicated . Discussed that if there is something concerning with FHR that staff would listen more frequently. Reviewed emergency equipment, medications at center and proximity to [facility] and [place]. OR is one thing that is not available at center. 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 Discussed [...] spent with Monse. Not available 05/25/2024 17:36:29 Plan of Treatment Reminders Order Date Submit Date Provider Last Modified By Organization Details Last Modified Time Details Appointments Ultraso und Anatomy Scan 05/14/ 2025 04:00P M Ultrasound Not available Not available Not available PNV 2024 05:00P M Fruit Packer 1 Not available Not available Not available Lab None recorde d. Referral None recorde d. Procedures None recorde d. Surgeries None recorde d. Imaging None recorde d. Medication Orders None recorde d. Patient TargetsNo targets recorded. Patient Instructions Encounter Date Encounter Id Patient Instructions Last Modified By Organization Details Last Modified Time 05/25/2024 [id number] 1. FPNV schedule d on 06/20/24. Anatomy scan and PNV also scheduled in July. 2. Complete diet diary. 3. Call with questions/concern kory lewis Not available 05/25/2024 17:16:49 Reason for Referral None Reported. Problems Name Problem SNOMED Code Status Onset Date Resolution Date Notes Provider Name and Address Organization Details Recorded Time [id number] Active 025 Morenita Magallanes [address] [place] [address], [phone] , [email or web address] 15:34:24 Problem Notes None recorded. Procedures Surgical History Date Name Laterality Status Provider Name and Address Organization Details Recorded Time 12/21/19 24 Date of Last Pap Smear completed Morenita Magallanes [address] [place] [address], [phone], [employer] 05/25/2024 16:00:29 Breast augmentation w/implt completed Morenita Magallanes [address] [place] [address], [phone], [email or web address] 05/25/2024 15:24:53 Imaging Results None recorded. Procedure [...] active Not Available Not Available Not Available Kuli Kuli 45 mg-3.75 mg-50 mg chewable tablet Take as needed by oral route. active Not Available Not Available No t Available Vitals Date Recorded Body height Body mass index (BMI) Body weight Provider Name and Address Organization Details Last Updated DateTime 05/25/2024 162.56 cm 21.5 kg/m2 67323.05 g Morenita Mgaallanes [address] [place] [place], [address], [email or web address] 05/25/2024 15:58:37 Social History Question Answer Notes LastModified by Organizat ion Details LastModified Time Tobacco Smoking Status Former Smoker vaping from 2021 to 01/2024 Morenita Magallanes [address] [place], [address], [facility] 05/25/2024 16:40:58 What Is Your Level Of [...] Or The Highest Degree You Have Received? [id number] Information not available 05/25/2024 What Is Your [...] Anxious, Or Unable To Sleep At Night)? [id number] Information not available 05/25/2024 Do You Use [...] SNOMED-CT Code Diagnosis ICD10 Code Diagnosis Note [id number] Morenita Magallanes Main Office [address] [place] [phone] 05/25/2024 15:55:42 05/25/2024 17:30:17 Health Concerns Section Related Observation LastModified by Organization Detai ls LastModified Time None Recorded Concern Status LastModified by Organization Details LastModified Time None Recorded Payers Encounter Date Sequence Insurance Name Policy Number Policy Hidalgo Covered Member ID Hidalgo Member ID Guarantor Name 05/25/2024 1 [facility] [id number] Dianelys Verdin [id number] Dianelys Verdin Notes Date Note Type Note [...] on his side. Morenita Magallanes [address], [place], [address], [employer] 05/30/2024 10:42:19 OBGyn Episode Ob Episode Information Episode Created Date Number of Fetuses Patient Bloodtype Patient rh Status Prepregnancy Weight lbs Domestic Partner Domestic Partner Phone Father Name Sex Offender Treatment Professional Status 05/26/19 25 1 A Positive Bart [...] Weight in lbs Pre/Post Dialysis Refused Stated 125.849523983925 BP Diastolic BP Location Tested BP Systolic BP Type Fetus Heart Rate Present Fetus Movement Comments Flowsheet Date 06/20/2024 Lopez Score Blood Edema Fundus Height Fundus Units Glucose Ketones Leukocytes Nitrite Labor Signs Protein Cervic Dilation Cervic Effacement Cervic Station none none Type Weight in lbs Pre/Post Dialysis Refused 148.517083043804 BP Diastolic BP Location Tested BP Systolic [...]
--- OUTSIDE RECORDS SUMMARY | 2024-06-23 14:54 | XMS_ITS | Encounter Summary ---
Author Organization [employer] Address [address], [place] [address] Care Team Providers Care Architectural Wood Model Maker Name Role Phone Needs Pcp, Assignment Primary Care Provider [phone] Encounter Details Date Type Department Care Team (Late st Contact Info) Description 05/01/2024 Results Follow-Up [facility] [address] [facility], [facility] [address] [place] [address] Dianelys Gonzalez, MARKET RESEARCH LEAD, HOGSHEAD WEIGHER [address] [facility] [address] [place] [address] Social History Tobacco Use Types Packs/Day Years Used Date Smoking Tobacco: Former Cigarettes Smokeless Tobacco: Never Comments:Currently on Nicoti ne replacement therapy - Nicorette gum - since using less one/two a day. 04/13/2024 Alcohol Use Standard Drinks/Week Comments Not Currently 0 (1 standard drink = 0.6 oz pur e alcohol) Sober - 12/2017 PHQ-2 Answer Date Recorded PHQ-2 Score 0 12/17/2022 Estimated Date of Delivery Comme nts Yes [...] on filedocumented in this encounter Care Teams Architectural Wood Model Maker Relationship Specialty Start Date End Date Needs Pcp, [place] [address] PCP - General 04/28/17 documented as of this encounter
--- OUTSIDE RECORDS SUMMARY | 2024-06-23 14:55 | XMS_ITS | Encounter Summary ---
Author Organization [facility] Address [address] [place] [address] Care Team Providers Care Electrical Systems Engineer Name Role Phone Needs Pcp, Assignment Primary Care Provider Encounter Details Date Type Department Care Team (Late st Contact Info) Description 05/30/2024 [facility] [facility] [address] [place] [address] Mychart, [place] [address] Social History Tobacco Use Types Packs/Day Years [...] on filedocumented in this encounter Care Teams Electrical Systems Engineer Relationship Specialty Start Date End Date Needs Pcp, [place] [address] PCP - General 04/28/17 documented as of this encounter
--- OUTSIDE RECORDS SUMMARY | 2024-06-23 14:55 | XMS_ITS | Clinical Summary ---
Author Organization [employer] [facility] [employer] Address [address] [place] [address] Care Team Providers Care Civil Litigation Attorney Name Role Phone SylvesterEric Primary Care Provider [phone] Allergies No known active allergies Medications isotretinoin (ACCUTANE ORAL) Take by mouth. Active Active Problems No known active problems Social History Tobacco Use Types Packs/Day Years Used Date Smoking Tobacco: Former Smokeless Tobacco: Never Comments:E-cig 6 mg Alcohol Use Standard Drinks/Week Comments Not Currently 0 (1 standard drink = 0.6 oz pur e alcohol) Comments No Sex and Gender Information Value Date Recorded Sex Assigned at Not on file Legal Sex Female 4:45 AM CDT Gender Identity Not on file Sexual Orientation Not on file Obstetrics History Last Filed Vital Signs Vital Sign Reading Time Taken Comments Blood Pressure 122/86 07/23/2023 10:21 AM CDT Pulse 77 07/23/2023 10:21 AM CDT Temperature 36.2 C (97.2 F) 07/23/2023 10:21 AM CDT Respiratory Rate 16 07/23/2023 10:21 AM CDT Oxygen Saturation 97% 07/23/2023 10:21 AM CDT Inhaled Oxygen Concentration - - Weight 58.1 kg (128 lb) 07/23/2023 10:21 AM CDT Height 162.6 cm (5' 4) 07/23/2023 10:21 AM CDT Body Mass Index 21.97 07/23/2023 10:21 AM CDT Plan of Treatment Health Maintenance Due Date Last Done Comments Tdap 2005 Depression screening for age 12+ 2006 HIV for age 15-65 2009 Hepatitis C screening for ag e 18-79 2012 Tetanus booster 2014 Pap test for age 21-65 09/10/2015 BMI (ht and wt on same day) for age 18+ 03/05/2018 03/05/2017 COVID-19 vaccine series ( season) 2023 04/14/2021, 08/21/2020, 07/24/2020 Influenza Vaccine (Season Ended) 2024 Pneumococcal series for age 6-49 Aged Out No longer eligible b ased on patient's age to complete this topic Insurance [address] [place], [place] [address] [employer] [address] [place] [address] [employer] Care Teams Civil Litigation Attorney Relationship Specialty Start Date End Date Eric Phan [address] [facility] [place] [address] PCP - General Family Practice 06/19/20
--- OUTSIDE RECORDS SUMMARY | 2024-06-23 14:55 | XMS_ITS | Clinical Summary ---
Author Organization [facility] Address [address] [place] [address] Care Team Providers Care [facility] Lab Technician Name Role Phone No Ref-Primary, Physician Primary Care Provider Allergies No known active allergies Medications etonogestrel (NEXPLANON) 68 MG IMPLIndications:S creening for tuberculosis 1 each by Subdermal route once Active Immunizations Name Administration Dates Next Due Mantoux Tuberculin Skin Test 03/19/2016 TDAP Vaccine (Adacel) 09/10/2006 Family History Medical History Relation Comments Depression Father Obesity Father Substance Abuse Father Other Cancer Maternal Grandfather Diabetes Maternal Grandmother Hypertension Maternal Grandmother Asthma Mother Obesity Mother Diabetes Paternal Grandfather Breast Cancer Paternal Grandmother Diabetes Paternal Grandmother Obesity Paternal Grandmother Anesthesia Reaction No family hx of Anxiety Disorder No family hx of Cerebrovascular Disease No family hx of Colon Cancer No family hx of Coronary Artery Disease No family hx of Genetic Disorder No family hx of Hyperlipidemia No family hx of Mental Illness No family hx of Osteoporosis No family hx of Prostate Cancer No family hx of Thyroid Disease No family hx of Unknown/Adopted No family hx of Relation Status Comments Father Maternal Grandfather Maternal Grandmother Mother Paternal Grandfather Paternal Grandmother Social History Tobacco Use Types Packs/Day Years Used Date Smoking Tobacco: Some Days Cigarettes Smokeless Tobacco: Never Tobacco Cessation:Ready to Q uit: No; Counseling Given: No Alcohol Use Standard Drinks/Week Comments Yes 12 (1 standard drink = 0.6 oz pu re alcohol) on weekends Adolescent Education Answer Date Record ed Getting School Help Needed Not on file 12/20 Comments Unknown Sex and Gender Information Value Date Recorded Sex Assigned at Not on file Legal Sex Female 3:19 AM MULTIMEDIA EDUCATIONAL SPECIALIST Gender Identity Not on file Sexual Orientation Not on file 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 Not on file Not on file Last Filed Vital Signs Vital Sign Reading Time Taken Comments Blood Pressure 131/78 04/11/2022 2:20 AM MULTIMEDIA EDUCATIONAL SPECIALIST Pulse 86 04/11/2022 2:20 AM MULTIMEDIA EDUCATIONAL SPECIALIST Temperature 37 C (98.6 F) 04/10/2022 10:08 PM MULTIMEDIA EDUCATIONAL SPECIALIST Respiratory Rate 20 04/10/2022 10:08 PM MULTIMEDIA EDUCATIONAL SPECIALIST Oxygen Saturation 98% 04/11/2022 2:20 AM MULTIMEDIA EDUCATIONAL SPECIALIST Inhaled Oxygen Concentration - - Weight 54.4 kg (120 lb) 04/10/2022 10:08 PM MULTIMEDIA EDUCATIONAL SPECIALIST Height 160 cm (5' 3) 04/10/2022 10:08 PM MULTIMEDIA EDUCATIONAL SPECIALIST Body Mass Index 21.26 04/10/2022 10:08 PM MULTIMEDIA EDUCATIONAL SPECIALIST Plan of Treatment Health Maintenance Due Date Last Done Comments ADVANCE CARE PLANNING 1994 ANNUAL REVIEW OF HM ORDERS 1994 HIV SCREENING 2009 HEPATITIS C SCREENING 2012 Pneumococcal Vaccine: Pediatrics (0 to 5 Years) and At-Risk Patients (6 to 49 Years) (1 of 2 - PCV) 2013 PAP 09/10/2015 YEARLY PREVENTIVE VISIT 12/18/2022 12/19/19 22, 01/23/2021, 04/28/2017 COVID-19 Vaccine ( season) 2023 08/21/2020, 07/24/2020 INFLUENZA VACCINE (#1) 2023 , 11/15/2020, 12/05/2019, Additional history exists PHQ-2 (once per calendar year) 2024 DTAP/TDAP/TD IMMUNIZATION (8 - Td or Tdap) 04/28/2027 04/28/2017, 09/10/2006, 10/30/1999, Additional history exists ZOSTER IMMUNIZATION (1 of 2) 2044 HEPATITIS B IMMUNIZATION Completed 996, 1994, 1994 HPV IMMUNIZATION Completed 01/30/2020, 12/2018, 11/04/2018 MENINGITIS IMMUNIZATION Aged Out No l onger eligible based on patient's age to complete this topic Care Teams [facility] Lab Technician Relationship Specialty Start Date End Date No Ref-Primary, Physician PCP - General 04/10/22
--- OUTSIDE RECORDS SUMMARY | 2024-06-23 14:55 | XMS_ITS | Encounter Summary ---
Author Organization [employer] Address [address], [place] [address] Care Team Providers Care Acid Regenerator Name Role Phone Needs Pcp, Assignment Primary Care Provider Reason for Visit * Reason Comments [facility] New Visit Encounter Details Date Type Department Care Team (Late st Contact Info) Description 05/29/2024 Telephone [facility] [id number] [place] [address], [facility] [address] [place] [address] [facility] New Visit Social History Tobacco Use Types Packs/Day Years [...] on file documented as of this encounter Nursing Notes * Sophia Jones - 05/29/2024 11:14 AM CDT [facility] [employer] new visit phone call. Introduced self and program to patient. Reviewed reason for referral: Interest in finding therapy and hx of LUBA. Patient welcomes call. 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 Is interested in re-engaging in talk therapy with the changes of parenthood coming up. States is currently engaged in therapy. Congratulated patient on taking good care of her mental health and on her sobriety. Offered to provide list of mental health providers as she wishes to find a different therapist from previous. Will send [employer] [facility] message. Patient denies other current non-medical needs. Journeyman Pressman welcomed call from patient as needed. Will be available prn. Sophia Covarrubias [facility] Showroom Consultant [phone] documented in this encounter Plan of Treatment Not on file documented as of this encounter Visit Diagnoses Diagnosis Careplan: [facility]- Primary Created for ALPHONSE Huffman's workgroup documented in this encounter Care Teams Acid Regenerator Relationship Specialty Start Date End Date Needs Pcp, [place] [address] PCP - General 04/28/17 documented as of this encounter
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
--- OUTSIDE RECORDS SUMMARY | 2024-06-23 14:55 | XMS_ITS | Clinical Summary ---
Author Organization [facility] Address [address] [place] [address] Care Team Providers Care Wrapper Operator Name Role Phone Eric Phan M.D. Primary Care Provider [phone] Source Comments Patient records contain information from all sites at [facility]. For routine questions regarding patient records, call [phone] during business hours, M-F 8:00 AM - 5:00 PM Central Time. Record requests for emergency care only can be directed to [phone] at any time.[facility] Allergies No known active allergies Medications * This document contains information received from the source organization and may not represent a complete record from that organization. hcnfyyn-[id number]-wjiz -FA 27 mg iron- 1 mg tablet Take 1 tablet by mouth daily. Active Accutane 40 mg capsule Take 40 mg by mouth 2 (two) times a day. 3 Active triamcinolone (KENALOG) 0.1 % cream Apply 1 Application topically 2 (two) times a day. 4 Active cholecalciferol (VITAMIN D3) 50 mcg (2,000 Unit) tablet Take 1 tablet by mouth daily. Active Active Problems Problem Noted Date Diagnosed Date Pain Knee Right 08/13/2023 Primary Osteoarthritis Knee Right 08/13/2023 Immunizations Immunization Administration Dates Next Due 9vHPV 01/30/2020,12/15/2018,11/04/2018 DTaP (Infanrix, [employer]) 10/30/1999,01/04/1996 DTaP / Hib 04/16/1995,01/26/1995,1994 H1N1 All Forms 03/28/2009 HepB Adult 1994 HepB Pediatric/Adolescent 07/06/1995,1994 IPV 10/30/1999 Influenza TIV (IM) 04/16/2014 Influenza, Injectable, Mdck, Preservative Free, Quadrivalent 12/17/2022,12/05/2019 Influenza, Injectable, Quadrivalent 02/05/2017 Influenza, Seasonal, Injectable 04/16/2014 MMR 10/30/1999,01/04/1996 TST-PPD phil test 03/19/2016 Tdap 04/28/2017,09/10/2006 QIANA 12/15/2018,11/09/1995 influenza vaccine quad (FLUZONE/FLUARIX) (6 months and older)(PF) 01/16/2022,11/23/2020,11/15/2020,2016 Family History Medical History Relation Name Comments No Known Problems Brother 1 No Known Problems Brother 2 Hyperlipidemia Father Shun Hypertension Father Shun Other cancer Maternal Grandfather Terrance Esophag eal Breast cancer Maternal Grandmother Agrita Skin cancer Maternal Grandmother Agrita No Known Problems Mother Breast cancer Paternal Grandmother Kari verdin Accident Sister Relation Name Status Comments Brother 1 Brother 2 Father Shun Maternal Grandfather Terrance Maternal Grandmother Agrita Mother Paternal Grandmother Kari verdin Sister Social History Tobacco Use Types Packs/Day Years Used Date Smoking Tobacco: Never Smokeless Tobacco: Never Tobacco Cessation:Counseling Given: Not Answered Alcohol Use Standard Drinks/Week Comments No 0 (1 standard drink = 0.6 oz pur e alcohol) [facility] Cute Attackities Answer Date Recorded In the past 12 months has [employer], [employer], oil, or water [employer] threatened to shut off services in your home? No 04/02/2023 Humiliation, Afraid, Rape, and Kick questionnair e Answer Date Recorded Fear of Current or Ex-Partner No Emotionally Abused No 12/15/2018 Physically Abused No 12/15/2018 Sexually Abused No 12/15/2018 Social Connection and Isolat ion Panel [NHANES] Answer Date Recorded Frequency of Communication w ith Friends and Family Three times a week 12/15/2018 Frequency of Social Gatherin gs with Friends and Family Three times a week 12/15/2018 Attends Evangelical Services More than 4 times per year 12/15/2018 Active Member of Clubs or Organizations Yes 12/15/2018 Attends Club or Organization Meetings More than 4 times per year 12/15/2018 Marital Status Never 12/15/2018 AUDIT-C Answer Date Recorded Frequency of Alcohol Consumption Never 12/15/2018 Average Number of Drinks Not on file 019 Frequency of Binge Drinking Not on file 12/06 Overall Financial Resource Strain (CARDIA) Answe r Date Recorded Difficulty of Paying Living Expenses Not very reddy rd 12/15/2018 PHQ-2 Answer Date Recorded PHQ-2 Score 1 12/15/2018 [facility] [place] [facility] - Occupational Stress Questionnaire Answer Date Recorded Feeling of Stress To some extent 12/15/2018 Exercise Vital Sign Answer Date Recorde d On average, how many days pe r week do you engage in moderate to strenuous exercise (like a brisk walk)? 5 days 04/02/2023 On average, how many minutes do you engage in exercise at this level? 60 min 04/02/2023 Hunger Vital Sign Answer Date Recorded Within the past 12 months, y ou worried that your food would run out before you got the money to buy more. Never true 04/02/19 Within the past 12 months, t he food you bought just didn't last and you didn't have money to get more. Never true 04/02/2023 PRAPARE - Transportation Answer Date Re corded In the past 12 months, has l ack of transportation kept you from medical appointments or from getting medications? No 03/09 In the past 12 months, has l ack of transportation kept you from meetings, work, or from getting things needed for daily living? No 04/02/2023 Nutrition Answer Date Recorded On average, how many serving s of fruits and vegetables do you eat per day (serving size is equal to 1 cup or approximately the size of a tennis ball)? 0-2 04/02/2023 Dental Answer Date Recorded Dental: Regular Dentist Yes 04/02/19 Employment Answer Date Recorded Employment status Employed and actively working without restrictions 04/02/2023 Housing Stability Answer Date Recorded What is your living situation today? I have a [facility] [place] place to live 04/02/2023 Education Answer Date Recorded What is the highest level of school you have completed or the highest degree you have received? Associate degree: occupational, technical, or vocational program 12/15/2018 Comments No Sex and Gender Information Value Date Recorded Sex Assigned at Female 01/12/2018 9:00 AM FRUCTOSE LOADER Legal Sex Female 4:11 PM FRUCTOSE LOADER Gender Identity Female 01/12/2018 9:00 AM FRUCTOSE LOADER Sexual Orientation Straight 01/12/2018 9: 00 AM FRUCTOSE LOADER Last Filed Vital Signs Vital Sign Reading Time Taken Comments Blood Pressure 119/78 04/02/2023 4:14 PM FRUCTOSE LOADER Pulse 77 04/02/2023 4:14 PM FRUCTOSE LOADER Temperature 36.9 C (98.4 F) 04/02/2023 4:14 PM FRUCTOSE LOADER Respiratory Rate 18 10/09/2019 3:25 PM CDT Oxygen Saturation 100% 04/02/2023 4:14 PM FRUCTOSE LOADER Inhaled Oxygen Concentration - - Weight 58.8 kg (129 lb 9.6 oz) 04/02/2023 4:14 P M FRUCTOSE LOADER Height 160 cm (5' 2.99) 04/02/2023 4:14 PM FRUCTOSE LOADER Body Mass Index 22.96 04/02/2023 4:14 PM FRUCTOSE LOADER Plan of Treatment Health Maintenance Due Date Last Done Comments HIV Screening 1994 Hepatitis C Screening 1994 IPV Vaccines (2 of 3 - 4-dose series) 11/27/1999 10/30/1999 COVID-19 Vaccine ( - season) 2023 04/14/2021, 08/21/2020, 07/24/2020 Influenza Vaccine (#1) 2023 , 01/16/2022, 11/23/2020, Additional history exists Depression Screening (Annual PHQ-2) 03/08/2024 Cervical/Vaginal Cancer Screening 12/17/2025 12/17/2022, 12/18/2021, 04/28/2017 (Performed elsewhere) DTaP,Tdap,and Td Vaccines (8 - Td or Tdap) 04/28/2027 04/28/2017, 09/10/2006, 10/30/1999, Additional history exists Hepatitis B Vaccines Completed 07/06/1995, 1994, 1994 Varicella Vaccines Completed 12/15/2018, 11/09/1995 HPV Vaccines Completed 01/30/2020, 12/06, 11/04/2018 Pneumococcal vaccine (0-49 years) Aged Out No longer eligible based on patient's age to complete this topic Medical Devices Implanted Type Area Pattern Data Operator Device Identifier Shelf Expiration Date Model / Serial / Lot Breast Implant-2020 Implanted: (Quantity not on file) Breast Implant Bilateral: Breast Insurance [facility] [facility] Care Teams Wrapper Operator Relationship Specialty Start Date End Date Eric Phan M.D. [address] [place] [address] PCP - General Family Medicine 04/05/23
[2024-06-23] MEDS: 0.9 % SODIUM CHLORIDE 1000 ml 1,000 ML IV (15:04)
[2024-06-23 15:19] LABS: Hemoglobin* 13.7 gm/dL (12.0-16.0)
[2024-06-23 15:33] LABS: Chloride* 105 mmol/L (96-114)
[2024-06-23 15:34] LABS: Potassium* 3.9 mmol/L (3.6-5.1); Sodium* 135 mmol/L (135-149)
[2024-06-23 15:37] LABS: Anion Gap 7 mEq/L (7-15); Blood Urea Nitrogen* 8 mg/dL (5-24); Carbon Dioxide* 23 mmol/L (20-32); Creatinine* 0.6 mg/dL (0.5-1.5); Est. Creatinine Clearance* 119.47; Estimated Glomerular Filt Rate 125 ml/min; Glucose* 92 mg/dL (60-115)
[2024-06-23 16:00] VITALS: BP 102/64; PULSE 82; RESP 16; O2SAT 100
[2024-06-23 17:21] LABS: Magnesium* 1.9 mg/dL (1.5-2.6)
== END 2024-06-23 17:05 | disposition home or self-care (01) ==
PROVIDERS: Emergency Provider Family Medicine
DX: I49.3 Ventricular premature depolarization (principal); R06.02 Shortness of breath
CPT/HCPCS: 36415; 80048; 83735; 84443; 85018; 93005; 93246; 99284; J7030

== ENCOUNTER 2024-11-22 10:56 | Inpatient (IN) | payer OTHER, SELFPAY ==
[2024-11-22] VITALS (26 sets, daily range): BP systolic 130–162; BP diastolic 74–96; PULSE 68–96; RESP 12–20; TEMP 36.6–37; O2SAT 90–99
[2024-11-22 11:44] LABS: Hematocrit 38.6 % (33.0-51.0); Hemoglobin* 13.6 gm/dL (12.0-16.0); Immature Granulocytes Abs Auto 0.03 K/uL (0.00-0.30); Immature Granulocytes Pct Auto 0.3 %; Lymphocytes Absolute Auto 1.50 K/uL (0.90-2.90); Mean Corpuscular HGB Conc 35 gm/dL (32-36); Mean Corpuscular Hemoglobin 32 pg (26-34); Mean Corpuscular Volume 90 fL (80-100); RDW Coefficient of Variation % 11.7 % (11.5-15.5); Red Blood Count 4.31 m/uL (4.00-5.20); White Blood Count* 10.61 K/uL (4.50-11.00)
[2024-11-22 11:47] LABS: Slide Review Reflex No
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
[2024-11-22 12:19] LABS: Appearance Urine Clear (Clear)
[2024-11-22 12:23] LABS: Alanine Aminotransferase* 19 U/L (4-35); Aspartate Amino Transferase* 32 U/L (12-35); Blood Urea Nitrogen* 8 mg/dL (5-24); Creatinine* 0.5 mg/dL (0.5-1.5); Estimated Glomerular Filt Rate 129 ml/min
[2024-11-22 12:37] LABS: Protein Creatinine Ratio Urine 0.53 (0-0.19)
[2024-11-22] MEDS: ONDANSETRON 2 MG/ML inj 4 MG IV ×2 (13:58→21:17)
[2024-11-22] MEDS: CALCIUM CARBONATE 500 MG CHEW PO (18:26)
--- NOTE | 2024-11-22 21:01 | P.OBPN_ITS ---
Subjective Date Seen: 11/22/24 Narrative: Dianelys is a 29 yo at 38 1/7 weeks gestation here for IOL for Pre- eclampsia without severe features. She has received 2 doses of cytotec and is now 1.5 cm. She reports feeling pt reports feeling strong period like cramping but they remain frequent with occasional heart rate changes due to what appears to be uterine tachysystole. Next dose was due at 6pm but was held due to this. After 2 additional hours, the uterine tachysystole has not improved much. Plan to rediscuss plan with patient and propose cook with plan to start IV pitocin later in the night. Patient is supported by her partner, Ayad. Objective Exam: Objective: Constitutional: Alert and oriented x3, mild distress, coping well Vital signs stable, see nurse documentation Abdomen: gravid, contractions palpate moderate with contractions and soft between Cervix: 1.5 cm/30%/-1 station/vertex; Cook catheter inserted at 2053 with 60cc vaginal and uterine. NST: 145 bpm/moderate variability/15x15 accelerations/early decelerations and possible occasional late decelerations/contractions every 1-2 minutes with varying intensity Vital Signs: Last Vital Signs Temp 98.4 F 11/22/24 19:31 Pulse 77 11/22/24 20:28 Resp 16 11/22/24 19:31 BP 134/78 11/22/24 20:28 Pulse Ox 98 11/22/24 20:28 Plan Plan: 29 yo at 38.1 weeks gestation? complicated by:?excessive weight gain in and tachycardia Labor type: Induced, not in labor? Category 1 FHR pattern.?? Labor complicated by: Pre-eclampsia without SF (based on Elevated BP x 4 hours apart and elevated p/c ratio) GBS negative? ? PLAN:? 1. Routine intrapartum cares as ordered. Reviewed current contraction pattern, heart rate changes, and inability to use additional doses of cytotec. Recommend cook catheter and starting Pitocin overnight, around 2-3 am. Patient is agreeable to plan. Cook catheter successfully placed. 2. Monitoring per policy, continuous due to Pre-e diagnosis.? 3. Planning unmedicated . Consider water . Consent at bedside (reviewed with patient but had not been signed like previously listed). Hep C negative. Candidate for analgesia of choice, if desired.?? 4. Patient encouraged to reposition and ambulate to promote physiologic labor and .? 5. Pre-eclampsia diagnosed. Pre-e labs drawn and pending. Will continue to monitor BP per policy. Has had one severe range BP but on repeat was mild range. 6. Anticipate ?
[2024-11-23] VITALS (169 sets, daily range): BP systolic 102–183; BP diastolic 56–99; PULSE 60–123; RESP 12–20; TEMP 36.6–37; O2SAT 87–100
[2024-11-23] MEDS: CALCIUM CARBONATE 500 MG CHEW PO ×4 (00:50→21:35)
[2024-11-23] MEDS: OXYTOCIN 30 unit/500 ML in NS 30 UNIT/500 ML BAG IVPB (05:01)
[2024-11-23] MEDS: LACTATED RINGERS 1000 ML 1,000 ML 125 ML IV ×2 (05:01→11:07)
--- NOTE | 2024-11-23 06:41 | P.OBPN_ITS ---
Subjective Date Seen: 11/23/24 Narrative: Dianelys is a 29 yo at 38 1/7 weeks gestation here for IOL for Pre- eclampsia without severe features. She has received 2 doses of cytotec followed by dolores. Pitocin started at 5 am. Patient is supported by her partner, Ayad. She reports she was able to get some rest after morphine and vistaril last night. Last Vital Signs Temp 98.4 F 11/22/24 19:31 Pulse 77 11/22/24 20:28 Resp 16 11/22/24 19:31 BP 134/78 11/22/24 20:28 Pulse Ox 98 11/22/24 20:28 Objective Exam: Constitutional: Alert and oriented x3, mild distress, coping well Vital signs stable, see nurse documentation Abdomen: gravid, contractions palpate moderate with contractions and soft between Cervix: 4 cm/60%/-1 station/vertex; SROM clear fluid 0600 NST: 145 bpm/moderate variability/15x15 accelerations/early decelerations and possible occasional late decelerations/contractions every 1-2 minutes with varying intensity Vital Signs: Last Vital Signs Temp 98.5 F 11/23/24 06:00 Pulse 78 11/23/24 06:35 Resp 20 11/23/24 06:00 BP 139/88 11/23/24 06:35 Pulse Ox 97 11/23/24 02:50 Plan Plan: Plan: 29 yo at 38.2 weeks gestation? complicated by:?excessive weight gain in and tachycardia Labor type: Induced, early labor? Category 1 FHR pattern.?? Labor complicated by: Pre-eclampsia without SF (based on Elevated BP x 4 hours apart and elevated p/c ratio) GBS negative? ? PLAN:? 1. Routine intrapartum cares as ordered. Plan to continue with IV pitocin titration s/p SROM. 2. Monitoring per policy, continuous due to Pre-e diagnosis.? 3. Planning unmedicated . Consider water . Consent at bedside (reviewed with patient but had not been signed like previously listed). Hep C negative. Candidate for analgesia of choice, if desired.?? 4. Patient encouraged to reposition and ambulate to promote physiologic labor and .? 5. Pre-eclampsia diagnosed. Pre-e labs WNL with elevated p/c ratio. Will continue to monitor BP per policy. Has had one severe range BP but on repeat was mild range. 6. Anticipate ?
--- NOTE | 2024-11-23 08:29 | PM.OBPNL ---
Subjective Date Seen: 11/23/24 Narrative: Monse is just getting up and still feeling very groggy from the morphine Vistaril given last night. She feels she slept ok. She is only feeling some period like cramping and is comfortable. Encouraged to ambulate and labor warm up to encourage labor. Did discuss pumping but with caution given her contraction pattern. She continues to leak clear fluid and is having some bloody show. Objective Vital Signs: Last Vital Signs Temp 98.5 F 11/23/24 07:28 Pulse 82 11/23/24 07:28 Resp 18 11/23/24 07:28 BP 133/85 11/23/24 07:28 Pulse Ox 97 11/23/24 02:50 Contractions Contraction Frequency: 1.5-3 Contraction pattern: Irregular Contraction intensity: Mild Pitocin Rate (mU/min): 3 Assessment Assessment: induction ongoing Amniotic Membrane Status: SROM Status: Category l Heart Rate Baseline: 140 Residential Variability: Moderate (6-25) (sleep cycles are occasionally minimal variability but increase to moderate with time.) Monitor Accelerations: Present Monitor Decelerations: None Plan Plan: 29 yo at 38.2 weeks gestation? complicated by:?excessive weight gain in and tachycardia Labor type: Induced, early labor? Category 2 FHR pattern. Occasional minimal variability but recovers to moderate. Likely contributed to Morphine/Vistaril she received overnight. ? Labor complicated by: Pre-eclampsia without SF GBS negative? ? PLAN:? 1. Routine intrapartum cares as ordered. Plan to continue with IV pitocin titration s/p SROM. 2. Monitoring per policy, continuous due to Pre-e diagnosis.? 3. Planning unmedicated . Considering water . Consent at bedside. Hep C negative. Candidate for analgesia of choice, if desired.?? 4. Patient encouraged to reposition and ambulate to promote physiologic labor and .? 5. Will continue to monitor BP per policy. 6. Anticipate ?
[2024-11-23] MEDS: SODIUM CHLORIDE 0.9 % (FLUSH) 10 ML SYRINGE IVF (09:44)
[2024-11-23] MEDS: ONDANSETRON 2 MG/ML inj 4 MG IV ×2 (09:44→13:50)
[2024-11-23] MEDS: ROPIVACAINE 0.2% 100 ml 100 ML 12 MG EPIDURAL ×2 (11:01→19:26)
[2024-11-23] MEDS: LIDOCAINE 2% (PF) 5 ML VIAL EPIDURAL (11:02)
--- NOTE | 2024-11-23 11:28 | PM.ANBPRC ---
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) Surgical History (Updated 11/22/24 @ 11:53 by Marline Antoine CNM) H/O breast augmentation ?Z98.82 - Breast implant status (ICD-10) Social History What is your current living situation?: I presently have a place to live Problems where you live: no known problems In the past 12 months, utilities in danger of being shut off: no In past 12 months, lack of transportation kept you from medical appts, meetings, work, or getting things needed for daily living: no In the past 12 mos, have been you worried that your food would run out before you had money to buy more?: never true In the past 12 mos, the food you bought just didn't last and you didn't have money to buy more?: never true Smoking Status: Former smoker Do you use any of these nicotine containing products: Vaping Products How often do you have a drink containing alcohol: never AUDIT-C Alcohol total score: 0 Non-prescribed substance use: denies use How often does anyone, including family, friends and others, physically hurt you: never How often does anyone, including family, friends and others, insult or talk down to you: never How often does anyone, including family, friends and others, threaten you with harm: never How often does anyone, including family, friends and others, scream or curse at you: never Meds Home Medications and Allergies Home Medications ?Medication ?Instructions ?Recorded ?Confirmed ?Type labetalol 100 mg tablet 100 mg PO BID-TID PRN #12 tabs 06/23/24 11/22/24 Rx vit no.95-ferrous 1 tab PO DAILY 06/23/24 11/22/24 History fumarate 28 mg-folic acid 800 mcg tablet () Iron (ferrous sulfate) PO DAILY 11/22/24 History Allergies Allergy/AdvReac Type Severity Reaction Status Date / Time No Known Drug Allergies Allergy Verified 11/22/24 11:32 Results Labs Labs: Laboratory Results - last 24 hr 11/22/24 11/22/24 11/22/24 11:34 11:34 11:34 WBC 10.61 Cancelled RBC 4.31 Cancelled Hgb 13.6 Hct MCV MCH MCHC RDW Coeff of Chung Plt Count Neut % (Auto) Lymph % (Auto) [place] % (Auto) Eos % (Auto) Baso % (Auto) Neut # (Auto) Lymph # (Auto) [place] # (Auto) Eos # (Auto) Baso # (Auto) Abs Immat Gran (auto) Imm/Tot Granulo (auto) BUN Creatinine Estimated GFR AST ALT Urine Color Urine Appearance Urine pH Ur Specific [place] Urine Protein Urine Glucose (UA) Urine Ketones Urine Blood Urine Nitrite Urine Bilirubin Urine Urobilinogen Ur Leukocyte Esterase Urine RBC Urine WBC Ur Squamous Epith Cells Urine Bacteria Urine Creatinine Protein/Creatinin Ratio Urine Total Protein Blood Type Antibody Screen 11/22/24 11/22/24 11/22/24 11:34 11:34 11:34 WBC RBC Hgb Cancelled Hct 38.6 Cancelled MCV 90 Cancelled MCH 32 MCHC RDW Coeff of Chung Plt Count Neut % (Auto) Lymph % (Auto) [place] % (Auto) Eos % (Auto) Baso % (Auto) Neut # (Auto) Lymph # (Auto) [place] # (Auto) Eos # (Auto) Baso # (Auto) Abs Immat Gran (auto) Imm/Tot Granulo (auto) BUN Creatinine Estimated GFR AST ALT Urine Color Urine Appearance Urine pH Ur Specific [place] Urine Protein Urine Glucose (UA) Urine Ketones Urine Blood Urine Nitrite Urine Bilirubin Urine Urobilinogen Ur Leukocyte Esterase Urine RBC Urine WBC Ur Squamous Epith Cells Urine Bacteria Urine Creatinine Protein/Creatinin Ratio Urine Total Protein Blood Type Antibody Screen 11/22/24 11/22/24 11/22/24 11:34 11:34 11:34 WBC RBC Hgb Hct MCV MCH Cancelled MCHC 35 Cancelled RDW Coeff of Chung 11.7 Plt Count 174 Cancelled Neut % (Auto) 78.0 H Lymph % (Auto) 14.1 L [place] % (Auto) 6.4 Eos % (Auto) 0.9 Baso % (Auto) 0.3 Neut # (Auto) 8.30 H Lymph # (Auto) 1.50 [place] # (Auto) 0.70 Eos # (Auto) 0.10 Baso # (Auto) 0.03 Abs Immat Gran (auto) 0.03 Imm/Tot Granulo (auto) 0.3 BUN 8 Creatinine 0.5 Estimated GFR 129 AST 32 ALT 19 Urine Color Urine Appearance Urine pH Ur Specific [place] Urine Protein Urine Glucose (UA) Urine Ketones Urine Blood Urine Nitrite Urine Bilirubin Urine Urobilinogen Ur Leukocyte Esterase Urine RBC Urine WBC Ur Squamous Epith Cells Urine Bacteria Urine Creatinine Protein/Creatinin Ratio Urine Total Protein Blood Type A Positive Antibody Screen NEGATIVE 11/22/24 12:09 WBC RBC Hgb Hct MCV MCH MCHC RDW Coeff of Chung Plt Count Neut % (Auto) Lymph % (Auto) [place] % (Auto) Eos % (Auto) Baso % (Auto) Neut # (Auto) Lymph # (Auto) [place] # (Auto) Eos # (Auto) Baso # (Auto) Abs Immat Gran (auto) Imm/Tot Granulo (auto) BUN Creatinine Estimated GFR AST ALT Urine Color Yellow Urine Appearance Clear Urine pH 6.0 Ur Specific [place] 1.010 Urine Protein Negative Urine Glucose (UA) Negative Urine Ketones Negative Urine Blood Trace-lysed A Urine Nitrite Negative Urine Bilirubin Negative Urine Urobilinogen 0.2 Ur Leukocyte Esterase Negative Urine RBC 2-5 A Urine WBC 5-10 A Ur Squamous Epith Cells Few Urine Bacteria Moderate A Urine Creatinine 28.5 Protein/Creatinin Ratio 0.53 H Urine Total Protein 15 Blood Type Antibody Screen Vital Signs Vital Signs: Last Vital Signs Temp 98 F 11/23/24 09:49 Pulse 85 11/23/24 11:27 Resp 20 11/23/24 09:49 BP 129/85 11/23/24 11:27 Pulse Ox 100 11/23/24 11:25 Weight: 86.092 kg Height: 162.56 cm Anesthesia Procedures Epidural Insertion Patient Location: OB Start Time: 10:40 Stop Time: 11:40 Start Date: 11/23/24 Stop Date: 11/23/24 Reason for Block: procedure for pain Patient Position: sitting Performed By: Ceci Ta Preanesthetic Checklist: IV checked, risks and benefits discussed, monitors and equipment checked, pre-op evaluation, timeout performed and anesthesia consent Prep: chlorhexidine gluconate Monitoring: blood pressure monitoring, continuous pulse oximetry and heart rate Approach: midline Vertebral Space: lumbar (1-5) Epidural Technique: JUAN saline Needle Type: Tuohy needle Injection Technique: continuous catheter (continuous catheter) Needle gauge: 17 Needle Length (cm): 10 cm Needle Insertion Depth (cm): 7 Catheter Gauge: 19 Catheter Type: multi-orifice Catheter at skin depth (cm): 15 Test Dose Result: negative and lidocaine 1.5% with epinephrine 1 to 200,000
--- NOTE | 2024-11-23 11:53 | P.OBPN_ITS ---
Subjective Time Seen by Provider: 11:53 Date Seen: 11/23/24 Narrative: She had discussed a waterbirth and did desire it but consent was not signed before she changed her mind and requested an epidural. SVE due to feeling some pressure with contractions around 1030 and she was found to be 5-6cm/80%/0 station. She began to feel contraction painfully around 1000 and was breathing through them. Monse labored in the tub for a while before deciding to get out and get an epidural. She is now resting comfortably with an epidural. She is well supported by her partner and a heavy forger. FHR showed decreases in the FHR after the epidural when her blood pressure decreased to the 110's from 130-140's. SVE per RN was unchanged. She was repositioned, a fluid bolus was initiated and her Pitocin at 7mU was stopped. Baby recovered with these interventions. Restart Pitocin at 3mU however minimal variability persisted so Pitocin was turned off again. Will reevaluate after baby has recovered. . Objective Vital Signs: Last Vital Signs Temp 98 F 11/23/24 09:49 Pulse 86 11/23/24 11:53 Resp 20 11/23/24 09:49 BP 105/57 L 11/23/24 11:53 Pulse Ox 94 11/23/24 11:50 Pelvic Exam Dilation (cm): 5.5 Effacement (%): 80 Station: 0 Contractions Monitor mode: External Contraction Frequency: 2-3 Contraction pattern: Regular Contraction intensity: Strong/Firm Pitocin Rate (mU/min): 3 Assessment Assessment: induction ongoing Station: 0 Amniotic Membrane Status: SROM Status: Category ll Heart Rate Baseline: 140 [facility] Variability: Moderate (6-25) (periods of minimal ) Monitor Accelerations: Present Monitor Decelerations: Variable (down to 90-100) Plan Plan: 29 yo at 38.2 weeks gestation? complicated by:?excessive weight gain in and tachycardia Labor type: Induced, early labor? Category 2 FHR pattern. Occasional minimal variability but recovers to moderate. Likely contributed to Morphine/Vistaril she received overnight. ? Labor complicated by: Pre-eclampsia without SF GBS negative? ? PLAN:? 1. Routine intrapartum cares as ordered. Plan to continue with IV pitocin titration s/p SROM. 2. Monitoring per policy, continuous due to Pre-e diagnosis.? 3. Planning unmedicated . Considering water . Consent at bedside. Hep C negative. Candidate for analgesia of choice, if desired.?? 4. Patient encouraged to reposition and ambulate to promote physiologic labor and .? 5. Will continue to monitor BP per policy. 6. Anticipate ?
[2024-11-23] MEDS: LACTATED RINGERS 1000 ML 1,000 ML 200 ML IV (12:33)
--- NOTE | 2024-11-23 14:28 | PM.OBPNL ---
Subjective Time Seen by Provider: 15:30 Date Seen: 11/23/24 Narrative: Monse has continued to labor with an effective epidural in place. She is comfortable and has been able to take a nap. Pitocin was again turned off due to minimal variability after only being on for a short time. She had another deceleration down to the 70's that resolved with repositioning. SVE around 1500 showed she had progressed only slightly to 7cm but the remaining exam was unchanged. We reviewed the option of a FSE and IUPC since we are having difficulty tracing contractions. After discussing with her partner and front end architect she is agreeable to both. However with exam for the IUPC placement she was found to have changed to 8cm with the caput less prominent and baby feels more applied to the cervix. IUPC was placed with difficulty due to vertex position. Held on FSE placement given her recent cervical change and continuing to trace well. Will plan to restart Pitocin if able and needed. Objective Vital Signs: Last Vital Signs Temp 98.3 F 11/23/24 11:23 Pulse 88 11/23/24 14:18 Resp 16 11/23/24 11:23 BP 154/91 H 11/23/24 14:18 Pulse Ox 95 11/23/24 14:28 Pelvic Exam Dilation (cm): 8 Effacement (%): 90 Station: 0 Contractions Monitor mode: Internal (placed around 1530) Contraction Frequency: 3-4 min Contraction pattern: Regular Contraction intensity: Strong/Firm Pitocin Rate (mU/min): 0 Assessment Assessment: active labor Station: 0 Amniotic Membrane Status: SROM Status: Category ll Heart Rate Baseline: 145 [facility] Variability: Moderate (6-25) Monitor Accelerations: Present Monitor Decelerations: Variable (decrease to the 80's, ctx not tracing to identify ) Plan Plan: Plan: 29 yo at 38.2 weeks gestation? complicated by:?excessive weight gain in and tachycardia Labor type: Induced, active labor? Category 2 FHR pattern. Some minimal variability but decelerations rare. ? Labor complicated by: Pre-eclampsia without SF, category 2 tracing GBS negative? ? PLAN:? 1. Routine intrapartum cares as ordered. Pitocin continues to be held at this time. Will consider returning to titration if needed and able based on FHR tracing and contraction pattern. 2. Monitoring per policy, continuous.? 3. Effective epidural analgesia in place. 4. IUPC placed with informed consent. Will consider FSE as needed. 5. Patient assisted to reposition in bed to promote physiologic labor and .? 6. Will continue to monitor BP per policy. 7. Anticipate ?
[2024-11-23] MEDS: LACTATED RINGERS 1000 ML 1,000 ML 500 ML IV ×2 (19:30→20:52)
[2024-11-23] MEDS: ACETAMINOPHEN 500 MG TABLET 1000 MG PO (19:39)
--- NOTE | 2024-11-23 21:09 | P.OBPN_ITS ---
Subjective Time Seen by Provider: 21:45 Date Seen: 11/23/24 Narrative: Michaelle progressed to a right sided anterior rim around 1744. With consent rim was reduced with a few contractions and felt to stay reduced with a few pushes. She began to actively push. At 1900 the FHR was noted to be in the 180's with minimal variability. No fever but she did feel warm internally and stated that she felt warm and feverish. IV fluid bolus initiated and PO Tylenol given. On SVE at that time it was found that the right anterior lip was again present. It did reduce with a contraction. She stopped pushing at this time due to the FHR tracing, maternal fatigue, and persistent lip. She was able to get some rest although felt pressure though this time. During her rest period at 2035 a severe range blood pressure was measured but she was actively agusto and laying on the cuff arm at that time. Repeat BP was 130/66. The FHR decreased into the 150's and she felt more rested. The right lip persisted but it easily reduced with minimal pressure during a contraction. After a few contraction it was still noted between contractions but smaller and no longer tight against the head. Cap present on exam but there was some descent with pushing as well. Contractions had noted to be more spaced out after this rest period so the decision was made to restart the IV Pitocin titration at 2116. She resumed pushing around this time. Objective Vital Signs: Last Vital Signs Temp 98.4 F 11/23/24 20:39 Pulse 89 11/23/24 21:08 Resp 18 11/23/24 20:39 BP 136/70 11/23/24 21:08 Pulse Ox 100 11/23/24 17:09 Pelvic Exam Dilation (cm): 10 Effacement (%): 100 Station: +1 Contractions Monitor mode: External (IUPC fell out and was not replaced as she was making cervical change ) Contraction pattern: Regular Contraction intensity: Strong/Firm Pitocin Rate (mU/min): 2 Assessment Assessment: active labor Station: +1 Amniotic Membrane Status: SROM Status: Category ll Heart Rate Baseline: 145 [employer] Variability: Moderate (6-25) Monitor Accelerations: Present Monitor Decelerations: None Plan Plan: 29 yo at 38.2 weeks gestation? complicated by:?excessive weight gain in and tachycardia Labor type: Induced, second stage Currently category 1 FHR pattern. ? Labor complicated by: Pre-eclampsia without SF, persistent anterior rim, Intermittent FHR concerns. GBS negative? ? PLAN:? 1. Routine intrapartum cares as ordered. Restart Pitocin titration to augment contractions. 2. Monitoring per policy, continuous.? 3. Effective epidural analgesia in place. 4. Reviewed with patient that may consider FSE if FHR becomes difficult to trace during the second stage of labor. 5. Patient assisted to reposition in bed to promote physiologic labor and . Changing pushing positions in labor.? 6. Will continue to monitor BP per policy. 7. Anticipate ?
[2024-11-24] VITALS (17 sets, daily range): BP systolic 125–166; BP diastolic 69–89; PULSE 74–144; RESP 16–18; TEMP 36.6–37.4; O2SAT 97–100
[2024-11-24] MEDS: LIDOCAINE 1 % PF 30 ML INJECTION (00:39)
[2024-11-24] MEDS: lidocaine HCL 2 % JELLY (TOP) STERILE 6 ML TOPICAL (00:42)
--- NOTE | 2024-11-24 01:18 | W.PM.OBVAGDE ---
OB Procedure Vag Delivery Mother Details Mother Details: The patient is a 29 year-old, 1, Para 1, admitted on 11/22/24 at Days gestation. : 1 Para: 1 Weeks Gestation: 38.3 Admission Date: 11/22/24 Additional Details Amniotic Membrane Status: SROM Amniotic Membrane Rupture Date: 11/23/24 Amniotic Membrane Rupture Time: 06:00 Amniotic Membrane Fluid Description: Clear Analgesia/Anesthesia Type: Epidural Waterbirth: No Pitcoin: Yes Intrapartal Events: Labor Induction, Distress, ROM >18 Hours and Prolonged 2nd Stage >2.5 Hrs Induction Method: Intracervical balloon catheter and per misoprostol protocol Delivery augmentation: pitocin Labor Onset: 09:45 Complete: 22:30 Pushin:20 Heart: heart tones during second stage were category 2. Baseline mostly 150's but had a period of tachycardia in the 180's. Some variable decelerations with pushing. Prolonged deceleration with that resolved with time and change in station. Delivery Details Delivery Date: 11/24/24 Delivery Time: 00:17 Route of delivery: Infant Gender: Female Infant Viability: Alive; Heart Rate Present Position at Delivery: OA Delivery Details: Patient was admitted for IOL for gestational hypertension. She was a transfer from the [facility] for blood pressure concerns. She progressed with a couple of doses of Cytotec, Cook catheter, and Pitocin augmentation. SROM noted at 0600 with clear fluid. Patient initially pushed for about 1.5 hours when she was thought to be complete but was subsequently found to have a persistent small right anterior lip. After laboring down despite her feeling lots of pressure the lip persisted but was easily reduced and dissipated after a few pushed. Patient began pushing at 2120 but was not confirmed to be complete with that persistent lip being gone at 2230. There was a prolonged deceleration at the time of . An episiotomy was discussed as the perineal tissue was very tight and not stretching but the FHR recovered without and she was able to delivery without a few contractions later. of a viable male at 0017 on her back in the bed. Vertex delivered OA. No nuchal cord or shoulder. The nuchal cord was noted to be folded over up at the neck likely accounting to the FHR concerns noted at different times during labor. Body delivered easily and without incident. Infant passed to mothers abdomen with minimal cry. Remainder of the babies assessment was normal so early clamping was not performed but was clamped at the 5 minute lesly and brought to the warmer for closer observation. He was brought back to moms chest shortly after that. Cord was clamped and cut at > 5 minutes. APGARS were 7 at one minute and 8 at five minutes respectively. Mouth was bulb suctioned. Intact placenta with a 3 vessel cord delivered spontaneously at 0026. Fundus firm. Right labial laceration was identified and repaired in typical fashion as it was not well approximated without a repair. QBL 100 cc. Mother and baby stable; mother plans to breastfeed. Infant weight 6lb 12oz. 1 Minute Interval Total Score: 7 5 Minute Interval Total Score: 8 Additional Details Shoulder Dystocia: No Placenta Delivery Time: 00:26 Placental Delivery Description: Spontaneous Delivery repair: Vicryl Procedure Done: Global Blood Loss: 100 Laceration: Labial (right labial-repaired ) Episiotomy Description: None Blood Loss Measurement Type: QBL Bakri Used: No Sponge/Need Count Correct: Yes Cord Vessel Description: 3 Vessels Event Summary Status: Mother and infant were stable after delivery. Disposition: floor
[2024-11-24] MEDS: ONDANSETRON 2 MG/ML inj 4 MG IV (01:33)
[2024-11-24] MEDS: IBUPROFEN 600 MG TABLET PO ×3 (01:39→19:39)
[2024-11-24] MEDS: ACETAMINOPHEN 500 MG TABLET 1000 MG PO ×3 (04:37→23:10)
--- NOTE | 2024-11-24 12:53 | PM.ANPOST ---
Post Anesthesia Note Post Anesthesia Note Patient seen: Inpatient Respiratory Status: adequate Cardiovascular Status: adequate Mental Status: baseline Pain: adequate Temp: baseline Anesthetic awareness: N/A Complications: none Follow care: none
[2024-11-25 01:57] VITALS: BP 136/88; PULSE 68; RESP 16; TEMP 36.4; O2SAT 98
[2024-11-25] MEDS: IBUPROFEN 600 MG TABLET PO ×2 (02:06→11:47)
[2024-11-25 06:59] VITALS: BP 136/89; PULSE 79; RESP 16; O2SAT 98
[2024-11-25] MEDS: ACETAMINOPHEN 500 MG TABLET 1000 MG PO (07:01)
--- NOTE | 2024-11-25 08:20 | P.DS_ITS ---
DS: Providers Provider Date Seen: 11/25/24 Date of admission: 11/22/24 10:56 Primary care physician: Not a Local Provider Admitting Clinician: Marlnie Antoine CNM Attending Physician on discharge: Reynold HDZ Date of Discharge: 11/25/24 DS: Diagnosis Discharge Diagnosis (1) care and examination: Status: Acute (2) Lactating mother: Status: Acute (3) (normal spontaneous vaginal delivery): Status: Acute Exam Narrative: Exam Narrative: GENERAL APPEARANCE:? normal affect, alert, no distress MOOD:? appropriate CHEST:? clear to auscultation HEART:? regular rate and rhythm ABDOMEN:? soft, non-tender the uterine fundus is 2 fingerbreadths below Umbilicus, Midline and is appropriate for the stage of recovery. PERINEUM:? mild edema of the perineum, Labial laceration is well approximated with mild edema and no notable erythema EXTREMITIES:? normal and moderate edema Const: Vital Signs, click to edit/add: Vital Signs - 24 hr 11/24/24 09:20 11/24/24 11:42 11/24/24 15:45 Temperature 98.3 F 98.7 F 98.4 F Pulse Rate [Pulse Oximeter] 80 74 78 Respiratory Rate 17 18 18 Blood Pressure [Le ft Arm] 128/82 128/79 137/88 Pulse Oximetry 97 97 Oxygen Delivery Me thod Room Air Room Air Room Air 11/24/24 21:28 11/25/24 01:57 11/25/24 06:59 Temperature 97.8 F 97.6 F Pulse Rate [Pulse Oximeter] 76 68 79 Respiratory Rate 16 16 16 Blood Pressure [Le ft Arm] 130/89 136/88 136/89 Pulse Oximetry 97 98 98 Oxygen Delivery Me thod Room Air Room Air Room Air OB - DS: Summary Hospital Course Hospital Course: Dar is a 29 y.o. G 1 P 1001 who was admitted to [facility] for IOL for pr eeclampsia without severe features.? She had a NVD that was complicated cat 2 FHTs. The patient feels well.? The pain is well controlled with current medications.? She has no new complaints.? She is breast feeding and reports things are slow due to baby's intolerance of any feeds. she is pumping to stimulate her supply. at this time, the peds are considering transfer for the baby so further work up can investigate the GI issues he is having. the patient has done well.? Vitals have been stable.? She has remained afebrile.? Has a good appetite, is tolerating a general diet.? She is voiding without difficulty.? She is passing gas and has not had a bowel movement.? She is ambulating and denies any dizziness.? Has small amount of rubra lochia. She denies MELO, vision changes or RUQ pain. Swelling has increased as expected the first 24 hours. Monse is interested in taking a diuretic, but reviewed no current recommendations for this routinely exist. We are not sure how this may affect her milk supply. She is currently not on BP medication. She has been normotensive since 11/24 at 1am-demarcus. Running about 130s/80s. ?? Problems: none? ?? plan:? Discharge home.?To house guest if baby stays here, otherwise they will leave with the baby if transferred. Follow up in 3 days,2 weeks and 6 weeks.? , may see if needed? Hgb was 13.6 on admit and not checked . ? Preeclampsia without severe features diagnosed with BP > 4 hours apart? To watch fluid retention. Hold on diuretic for now due to limited knowledge of b enefit or harms. Can reconsider?at her 3-5 day follow up as desired. Discharge home with BP cuff if does not already have one? Follow up in 3-5 days, pt to schedule.? Call for signs/symptoms of preeclampsia? Peripartum Data delivery method: Vaginal Laceration description: Labial Episiotomy description: None complications: none Infant Gender: Male Discharge Plan: Home Status at Discharge Functional status at discharge: independent ambulation Overall status at discharge: patient is progressing back to baseline Time Spent with Patient Time attestation: Total time spent providing and/or coordinating discharge services: Time spent: Less than 30 minutes Discharge Plan Discharge Disposition: Home, Self-Care Date of Admission: 11/22/24 10:56 Attending Provider on Discharge: Rahel Ramos Primary Care Provider: Provider,Not a Local Condition: Stable Anticipated Discharge Date/Time: 11/25/24 10:27 Discharge Medications: Continued PNV no.95-ferrous fumarate-FA [] 28 mg iron- 800 mcg tablet 1 tab PO DAILY Discontinued Iron (ferrous sulfate) 325 mg tablet 325 mg PO DAILY labetalol 100 mg tablet 100 mg PO BID-TID PRNQty: 12 0RF Discharge Orders: Discharge Order (Routine); Ordered 11/25/24 Ordered By: Rahel Ramos Patient Education: OB Over the Counter Medication Information, OB Vaginal/Breast Feeding Additional Instructions: Discharge instructions were reviewed with the patient including signs and symptoms of infection and home going medications Nothing vaginally for 6 weeks: no tampons or intercourse Do not drive while taking narcotic pain medication(s) Off Work or School for 6 weeks Symptoms to report to doctor: * Bleeding that saturates more than one pad per hour * Passing clots larger than the size of a golf ball * Pain not relieved by prescribed medication * Fever above 100.4 degrees Fahrenheit * A foul vaginal odor * Difficulty in emotions, mood, and functions * Thoughts of hurting yourself and/or * Painful, reddened area in your breast * Any drainage, redness, or tenderness in your IV/epidural site * Severe headache that doesn't improve after taking medications * Changes in vision, including temporary loss of vision, blurred vision, and/or light sensitivity * Upper abdominal pain (usually under ribs on the right side) * Decrease in urination or painful, frequent urinating * Chest pain * Shortness of breath * Tenderness or pain with redness and/swelling in the calf(s) of your leg Follow [facility] for a BP check?Wednesday or Wednesday, please call to schedule Call with BP greater than or equal to 140/90 2-week visit: discuss infant feeding concerns, review control options and screen for anxiety/depression. 6-week visit for an annual exam. consultation services are available to all mothers and babies for the first year after delivery.? To make an appointment, please call [phone]. Activity Level: Activity as Tolerated and No strenuous activity Discharge Diet: Regular Follow Up Appointments: [facility] [Provider Group] Forms: Patient Belongings, MyHealth Info Instructions
[2024-11-25] MEDS: DOCUSATE SODIUM 100 MG CAPSULE PO (10:17)
[2024-11-25 11:30] VITALS: BP 138/84; PULSE 89; RESP 16; TEMP 36.4; O2SAT 97
== END 2024-11-25 12:02 | disposition home or self-care (01) | DRG 807 ==
PROVIDERS: Advanced Practice Midwife; Admitting Provider Advanced Practice Midwife; Visit Provider Advanced Practice Midwife
DX: O14.04 Mild to moderate pre-eclampsia, complicating childbirth (principal); Z37.0 Single live birth; O76 Abnormality in fetal heart rate and rhythm complicating labor and delivery; O63.1 Prolonged second stage (of labor); O26.03 Excessive weight gain in pregnancy, third trimester; O99.892 Other specified diseases and conditions complicating childbirth; R00.0 Tachycardia, unspecified; O70.0 First degree perineal laceration during delivery; Q99.2 Fragile X chromosome; Z91.410 Personal history of adult physical and sexual abuse; Z3A.38 38 weeks gestation of pregnancy
CPT/HCPCS: 01967; 36415; 59200; 81001; 81003; 82565; 82570; 84156; 84450; 84460; 84520; 85025; 85027; 86592; 86850; 86900; 86901; 87086; 94761; A9270; C1726; J2003; J2270; J2405; J2795; J7120

== ENCOUNTER 2024-11-27 16:42 | Inpatient (IN) | payer OTHER, SELFPAY ==
--- OUTSIDE RECORDS SUMMARY | 2023-08-13 10:21 | XMS_ITS | Continuity of Care Document ---
Author Organization [facility] Address [address] [address] [place] [address] Phone Care Team Providers Care Second Chef Name Role Phone Willian Justice MD Unavailable Unavailable Allergies, Adverse Reactions, Alerts Substance Reaction Status Criticality No Known Allergies Active No Inform ation Medications Medication Instructions Dosage Effective Dates (start - stop) Status Comments isotretinoin 40 mg capsule take (0.5MG/KG) by oral route 2 times every day 0.5 MG/KG - Active Vitamin D3 25 mcg (1,000 unit) tablet take 1 by Oral route every day 1 - Active vitamin B complex tablet inhale 1 Tablet by Oral route every day 1 Tablet - Active Fish Oil 1,000 mg (120 mg-180 mg) capsule take 1 Capsule by Oral route every day 1 Capsule - Active Procedures Procedure Date Colonoscopy Flex; Dx (sep Pro) 24 New Level 4 Advance Directives Directive Yes / No Effective Date File Name No Information Encounters Encounter Description Practice Location Reason(s) For Visit Diagnoses Date Provider Providers Copied on Encounter [facility], [address] [address], [place], [id number], [place] tel:[phone] [facility] No Information 4 Reshma Dorsey. [address] [facility], [facility] [address], [place], [id number] , [place]. [phone] [facility], [address] [address], [place], [id number], [place] tel:[phone] [facility] GI Symptoms or Concerns (chief complaint) Outlet dysfunction constipationOutlet dysfunction constipation 4 Lalo Salvador. [address] [facility], [address], [place], [place], [id number] , [place]. [phone] Referring Provider: Referral Self, USE FOR SELF REFERRALS. New Level 4 [facility], [address] [address], [place], [id number], [place] tel:[phone] [facility] GI Symptoms or Concerns (chief complaint) Dyssynergic constipation 4 Arnoldo Briseon. [address] [facility], [address], [place], [place], [id number] , [place]. [phone] Referring Provider: Eric Phan MD, [address] [place] [address], [address]. tel:[phone] [facility], [address] [address], [place], [id number], [place] tel:[phone] [facility] No Information 3 Beto Hudson. [address] [facility], [address], [place], [place], [id number] , [place]. [phone] Family History Family Member Type Diagnosis Age At Onset Mother Problem (finding) Liver disease Mother Problem (finding) Asthma Father Problem (finding) Alcoholism Mother Problem (finding) Irritable bowel syndrom e Immunizations Vaccine Date Status Comments Influenza, injectable, [facility] [place] Canine Kidney, preservative free, quadrivalent administered Note: [facility] bi-direct ional interface ; Source: Other Registry Afluria Qd administered Note: [facility] bi-directional interface ; Source: Other Registry SARS-COV-2 (COVID-19) vaccin e, mRNA, spike protein, LNP, preservative free, 100 mcg/0.5mL dose or 50 mcg/0.25mL dose administered Note: [facility] bi -directional interface ; Source: Other Registry Afluria Qd administered Note: [facility] bi-directional interface ; Source: Other Registry Afluria Qd administered Note: [facility] bi-directional interface ; Source: Other Registry SARS-COV-2 (COVID-19) vaccin e, mRNA, spike protein, LNP, preservative free, 100 mcg/0.5mL dose or 50 mcg/0.25mL dose administered Note: [facility] bi -directional interface ; Source: Other Registry SARS-COV-2 (COVID-19) vaccin e, mRNA, spike protein, LNP, preservative free, 100 mcg/0.5mL dose or 50 mcg/0.25mL dose administered Note: [facility] bi -directional interface ; Source: Other Registry Human Papillomavirus 9-yon t vaccine administered Note: [facility] bi-direct ional interface ; Source: Other Registry Influenza, injectable, [facility] [place] Canine Kidney, preservative free, quadrivalent administered Note: [facility] bi-direct ional interface ; Source: Other Registry Human Papillomavirus 9-yon t vaccine administered Note: [facility] bi-direct ional interface ; Source: Other Registry varicella virus vaccine administered Note : [facility] bi-directional interface ; Source: Other Registry Human Papillomavirus 9-yon t vaccine administered Note: [facility] bi-direct ional interface ; Source: Other Registry tetanus toxoid, reduced diphtheria toxoid, and acellular pertussis vaccine, adsorbed administered Note: [facility] b i-directional interface ; Source: Other Registry Afluria Qd administered Note: [facility] bi-directional interface ; Source: Other Registry Novel [id number], all formulations administered Note: [facility] bi-direct ional interface ; Source: Other Registry tetanus toxoid, reduced diphtheria toxoid, and acellular pertussis vaccine, adsorbed administered Note: [facility] b i-directional interface ; Source: Other Registry measles, mumps and rubella v irus vaccine administered Note: [facility] bi-direct ional interface ; Source: Other Registry poliovirus vaccine, inactivated administe red Note: [facility] bi- directional interface ; Source: Other Registry diphtheria, tetanus toxoids and acellular pertussis vaccine administered Note: [facility] b i-directional interface ; Source: Other Registry measles, mumps and rubella v irus vaccine administered Note: [facility] bi-direct ional interface ; Source: Other Registry diphtheria, tetanus toxoids and acellular pertussis vaccine administered Note: [facility] b i-directional interface ; Source: Other Registry varicella virus vaccine administered Note : [facility] bi-directional interface ; Source: Other Registry Energix Pediatric administered Note: [facility] bi-directional interface ; Source: Other Registry DTaP-Haemophilus influenzae type b conjugate vaccine administered Note: [facility] bi-direct ional interface ; Source: Other Registry DTaP-Haemophilus influenzae type b conjugate vaccine administered Note: [facility] bi-direct ional interface ; Source: Other Registry Engerix-B administered Note: [facility] bi-d irectional interface ; Source: Other Registry DTaP-Haemophilus influenzae type b conjugate vaccine administered Note: [facility] bi-direct ional interface ; Source: Other Registry Energix Pediatric administered Note: [facility] bi-directional interface ; Source: Other Registry Payers Payer name Insurance type Covered democrat ID Jairoa lucila(s) waygum CI [id number] Social History Type Description Quantity Date Captured Comments Sex Female Smoking Status No Information Chief Complaint And Reason For Visit No Information Reason For Referral Reason For Referral No Information Plan Of Treatment Date Type Action Status Referral Ordered: Anorectal manometry Appointment date/timeframe: First Available ordered Referral Ordered: Colonoscopy Appointment date/timeframe: 05/25/2023 ordered History Of Present Illness Encounter Date Complaint History Of Prese nt Illness GI Symptoms or Concerns GI Symptoms or Concerns A very p leasant 27-year-old female who presents here virtually at the request of her primary care, Dr. Eric Phan with a chief complaint of constipation and abdominal pain. The patient confirms that she is in a safe and secure location and provides her consent for the visit. She understands that the visit requires a physical exam, she will need to reschedule to an in-person clinic visit.The patient has had a longstanding history of having gastrointestinal issues since 2020 and she started noticing increasing constipation with abdominal pain in the lower abdomen. She attempted treatment for this with [id number] treatment as well as an alternative medicine practitioner and since October last year she also started noticing increased mucus in the stool. There were times where she developed worsening constipation leading to severe anorectal pain, possibly from an anal fissure according to her own report. For the past couple of weeks, the patient has started MiraLax daily wi Functional Status Date Functional Assessmen t No Information Instructions Date Instruction Additional Infor shannon We agreed on the fol lowing plan:1. Introduce footstool between 6-9 inches high for example squatty potty or similar brand.2. Continue MiraLax as ongoing for now.3. Colonoscopy to rule out structural causes for constipation/abdominal pain.4. Colonoscopy to be followed by anorectal manometry and possible biofeedback.5. The patient can follow up in the clinic after that and if there is need for more comprehensive workup, may be deferred to the [facility] as well. 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
[2024-11-27] VITALS (20 sets, daily range): BP systolic 129–155; BP diastolic 82–100; PULSE 78–123; RESP 16–20; TEMP 36.7–36.8; O2SAT 95–99; BMI 30.9
--- NOTE | 2024-11-27 17:53 | ED_ITS ---
HPI - General Adult General Time Seen by Provider: 17:53 Date Seen: 11/27/24 Chief complaint: Post OB/Post- Complication Stated complaint: High BP Time Seen by Provider: 11/27/24 17:34 Source: patient, RN notes reviewed and old records reviewed Mode of arrival: ambulatory Limitations: no limitations History of Present Illness HPI narrative: This 29-year-old female is coming in with elevated blood pressures with diagnosis of preeclampsia without severe features at the end of her . She states it started about 38 weeks. She had plan to deliver at some delivery center in the [facility] but her blood pressures were elevated, she chose to come down to [place]. She had Cytotec and then Pitocin, admitted on the . She had a spontaneous vaginal delivery on the . She was able to go home without any medicines. Her baby is still down on OB, was having feeding issues and was thought to be septic. Patient has been down there with the baby, admit she really has not slept much overnight. She maybe had an hour sleep. She has been monitoring her pressures in today was getting 160s over 90s at home. She has a generalized headache, if she looks at something bright she might see spots but overall really isn't noticing scotoma. Her lochia is minimal, no abdominal pain. No chest pain, no shortness of breath. Her liver functions and marta telets, creatinine were all stable in our records. 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 Related Data Allergies Allergy/AdvReac Type Severity Reaction Status Date / Time No Known Drug Allergies Allergy Verified 11/27/24 16:48 Review of Systems Status of ROS: Reports: 6 or more systems reviewed and unremarkable except as noted in History and below 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) Surgical History H/O breast augmentation ?Z98.82 - Breast implant status (ICD-10) Social History What is your current living situation?: I presently have a place to live Problems where you live: no known problems In the past 12 months, utilities in danger of being shut off: no In past 12 months, lack of transportation kept you from medical appts, meetings, work, or getting things needed for daily living: no In the past 12 mos, have been you worried that your food would run out before you had money to buy more?: never true In the past 12 mos, the food you bought just didn't last and you didn't have money to buy more?: never true Smoking Status: Former smoker Do you use any of these nicotine containing products: None Second hand tobacco smoke exposure: No How often do you have a drink containing alcohol: never AUDIT-C Alcohol total score: 0 Non-prescribed substance use: denies use How often does anyone, including family, friends and others, physically hurt you : never How often does anyone, including family, friends and others, insult or talk down to you: never How often does anyone, including family, friends and others, threaten you with harm: never How often does anyone, including family, friends and others, scream or curse at you: never Exam Const: Vital Signs, click to edit/add: Vital Signs - 24 hr 11/27/24 16:48 11/27/24 17:53 11/27/24 17:53 Temperature 98.2 F Pulse Rate [Pulse Oximeter] 95 Respiratory Rate 16 Blood Pressure 143/96 H Blood Pressure [Ri ght Upper Arm] 155/100 H 143/96 H Pulse Oximetry 95 Oxygen Delivery Me thod Room Air 11/27/24 18:02 11/27/24 18:18 11/27/24 18:32 Temperature Pulse Rate [Pulse Oximeter] Respiratory Rate Blood Pressure 132/94 H 136/94 H 135/88 Blood Pressure [Ri ght Upper Arm] Pulse Oximetry Oxygen Delivery Me thod 11/27/24 18:47 11/27/24 19:02 Temperature Pulse Rate [Pulse Oximeter] Respiratory Rate Blood Pressure 135/93 H 129/92 H Blood Pressure [Ri ght Upper Arm] Pulse Oximetry Oxygen Delivery Me thod This 29-year-old female is alert, interactive, no apparent distress. She is ambulatory into the ED of her own accord. When I come to see her, blood pressure is 132/94. It was 155/100 on arrival. Pupils equal round reactive, sclera clear, symmetrical facial function. Neck supple, no jugular venous distension. Lungs are clear, good air entry, no wheezing or crackles, no tachypnea accessory muscle use. CV regular rate and rhythm, no murmur, normal S1-S2, no S3-S4. Abdomen is soft, nontender. She certainly does not have any right upper quadrant tenderness. No tenderness over her uterus. Her lower extremities do have probably 2 to 3+ edema but no erythema. Documenting provider has reviewed patient's vital signs: yes Course Course ED Course: Patient's blood pressure is better at this time. She understands that we need to look at the labs. If her labs are showing any elevation, she would be admitted for magnesium. She does wonder if that could happen here since her baby is here. Did review with her that it certainly is a likelihood that she could be admitted here, depends on her labs and how she is doing clinically at the time. I will eventually talk to OB physician on-call as well. Right now she is stable, blood pressure improved. At minimum, suspect that she will need to go out on nifedipine but need to make sure her labs are stable 1st. Reevaluation(s) Time of Reevaluation #1: 19:19 Reevaluation #1: Did talk to patient about her labs, Dr. Walton had already looked at these, she was talking to the patient already. She will be taking over care of this patient, patient needs admission for IV magnesium. Her liver functions have gone up. Consultations Consultation #1: Did speak with Dr. Walton on this patient. We are waiting labs at this time, if there are changes with the labs patient will likely need to be admitted back in and put on magnesium. If labs are all normal and reassuring, plan will be to give her the long-acting nifedipine and start her at 30 mg twice a day. Time: 19:03 Vital Signs Vital signs: Initial Vital Signs Temperature 98.2 F 11/27/24 16:48 Temperature Source Temporal Artery Scan 11/27/24 16:48 Pulse Rate 95 11/27/24 16:48 Respiratory Rate 16 11/27/24 16:48 Blood Pressure 155/100 H 11/27/24 16:48 Blood Pressure Mean 118 H 11/27/24 16:48 Pulse Oximetry 95 11/27/24 16:48 Oxygen Delivery Method Room Air 11/27/24 16:48 Vital Signs Temperature 98.2 F 11/27/24 16:48 Pulse Rate 95 11/27/24 16:48 Respiratory Rate 16 11/27/24 16:48 Blood Pressure 155/100 H 11/27/24 16:48 Pulse Oximetry 95 11/27/24 16:48 Oxygen Delivery Method Room Air 11/27/24 16:48 Temperature 98.2 F 11/27/24 16:48 Pulse Rate 95 11/27/24 16:48 Respiratory Rate 16 11/27/24 16:48 Blood Pressure 129/92 H 11/27/24 19:02 Pulse Oximetry 11/27/24 16:48 Oxygen Delivery Method Room Air 11/27/24 16:48 Medical Decision Making Lab Data Lab results reviewed: Yes I reviewed the patient's lab results Lab results narrative: AST was 32 and ALT 19 on November 22. Creatinine was 0.5 on November 22. Platelet count appears stable. Labs: Lab Results 11/27/24 11/27/24 Range/Units 18:09 18:19 WBC 11.36 H (4.50-11.00) K/uL RBC 4.38 (4.00-5.20) m/uL Hgb 13.9 (12.0-16.0) gm/dL Hct 40.3 (33.0-51.0) % MCV 92 (80-100) fL MCH 32 (26-34) pg MCHC 35 (32-36) gm/dL RDW Coeff of Chung 11.9 (11.5-15.5) % Plt Count 231 (140-440) K/uL Neut % (Auto) 81.6 H (42.0-72.0) % Lymph % (Auto) 9.9 L (20-44) % Nelson % (Auto) 5.1 (0.0-11.0) % Eos % (Auto) 2.9 (0.0-7.0) % Baso % (Auto) 0.2 (0.0-3.0) % Neut # (Auto) 9.30 H (1.7-7.0) K/uL Lymph # (Auto) 1.10 (0.90-2.90) K/uL Nelson # (Auto) 0.60 (0.00-0.90) K/UL Eos # (Auto) 0.30 (0.00-0.50) K/uL Baso # (Auto) 0.00 (0.00-0.30) K/uL Abs Immat Gran (auto) 0.00 (0.00-0.30) K/uL Imm/Tot Granulo (auto) 0.3 % Sodium 137 (135-149) mmol/L Potassium 3.7 (3.6-5.1) mmol/L Chloride 104 (96-114) mmol/L Carbon Dioxide 25 (20-32) mmol/L Anion Gap 8 (7-15) mEq/L BUN 11 (5-24) mg/dL Creatinine 0.7 (0.5-1.5) mg/dL Estimated Creat Clear 101.48 Estimated GFR 119 ml/min Glucose 118 H (60-115) mg/dL Uric Acid 6.1 (2.2-8.4) mg/dL Calcium 9.0 (8.4-10.6) mg/dL Total Bilirubin 0.3 (0.1-1.5) mg/dL Direct Bilirubin 0.1 (0.0-0.5) mg/dL AST 166 H (12-35) U/L ALT 164 H (4-35) U/L Alkaline Phosphatase 121 (40-150) U/L Total Protein 7.3 (6.0-8.3) g/dL Albumin 3.7 (3.3-5.0) g/dL Urine Color Yellow (Yellow) Urine Appearance Clear (Clear) Urine pH 6.5 (5.0-8.5) Ur Specific [place] 1.015 (1.000-1.030) Urine Protein Negative (Negative) Urine Glucose (UA) Negative (Negative) Urine Ketones Negative (Negative) Urine Blood 2+ A (Negative) Urine Nitrite Negative (Negative) Urine Bilirubin Negative (Negative) Urine Urobilinogen 0.2 (0.2-1.0) Ur Leukocyte Esterase 1+ A (Negative) Urine RBC 0-2 (0-2) Urine WBC 5-10 A (0-5) Ur Squamous Epith Cells Few (None-Few) Urine Bacteria None (None) Discharge Plan Discharge Clinical Impression: Pre-eclampsia Qualifiers: Trimester: unspecified trimester Qualified Code(s): O14.90 - Unspecified pre- eclampsia, unspecified trimester Patient Disposition: Admitted As Inpatient Condition: Stable
[2024-11-27 18:28] LABS: Appearance Urine Clear (Clear)
[2024-11-27 18:48] LABS: Hematocrit* 40.3 % (33.0-51.0); Hemoglobin* 13.9 gm/dL (12.0-16.0); Immature Granulocytes Pct Auto 0.3 %; Mean Corpuscular HGB Conc 35 gm/dL (32-36); Mean Corpuscular Hemoglobin 32 pg (26-34); Mean Corpuscular Volume 92 fL (80-100); RDW Coefficient of Variation % 11.9 % (11.5-15.5); Red Blood Count* 4.38 m/uL (4.00-5.20); White Blood Count* 11.36 K/uL (4.50-11.00)
[2024-11-27 19:04] LABS: Chloride* 104 mmol/L (96-114); Immature Granulocytes Abs Auto 0.00 K/uL (0.00-0.30); Lymphocytes Absolute Auto 1.10 K/uL (0.90-2.90)
[2024-11-27 19:05] LABS: Albumin* 3.7 g/dL (3.3-5.0); Potassium* 3.7 mmol/L (3.6-5.1); Slide Review Reflex No; Sodium* 137 mmol/L (135-149)
[2024-11-27 19:07] LABS: Blood Urea Nitrogen* 11 mg/dL (5-24); Creatinine* 0.7 mg/dL (0.5-1.5); Est. Creatinine Clearance* 101.48; Estimated Glomerular Filt Rate 119 ml/min
[2024-11-27 19:08] LABS: Alanine Aminotransferase* 164 U/L (4-35); Alkaline Phosphatase* 121 U/L (40-150); Anion Gap 8 mEq/L (7-15); Aspartate Amino Transferase* 166 U/L (12-35); Bilirubin Direct* 0.1 mg/dL (0.0-0.5); Bilirubin Total* 0.3 mg/dL (0.1-1.5); Calcium* 9.0 mg/dL (8.4-10.6); Carbon Dioxide* 25 mmol/L (20-32); Glucose* 118 mg/dL (60-115); Total Protein* 7.3 g/dL (6.0-8.3)
--- NOTE | 2024-11-27 19:28 | P.OBHP_ITS ---
OB - H&P: HPI Labor/Induction History of Present Illness Time Seen by Provider: 19:20 Date Seen: 11/27/24 Chief Complaint: The patient is a 29 year old 1 para 1001, three days , who presented to the Emergency Department this evening complaining of not feeling well, with a mild headache, LE swelling and high BP. Chief complaint: High BP and new transaminitis : 1 Para: 1 Indications for induction: pre-eclampsia Narrative: The patient is day #3 following a normal spontaneous vaginal delivery at 38 3/7 weeks gestation. Labor had been induced for gestational hypertension without severe features. She was a late transfer of care from [facility] due to BP concerns. Her intrapartum and immediate BP was stable, and she was discharged from the hospital on 11/25/24 without the need for antihypertensive medications. He has remained in the hospital under Peds care and is receiving IV antibiotics. She has found this to be very stressful and has not been sleeping. She wasn't feeling well today and went home to try to get some sleep. She took her BP and it was 158/100 and then 160/110. She presented to the Emergency Department where she had mildly elevated BP (155/100, 143/96, 143/96, 132/94, 136/94, 135/88). Labs were significant for Hgb 13.9, platelets 231, Cr 0.7, AST 166, ALT 164, urine dip negative for protein. She will be admitted to the [facility] for pre-eclampsia with severe features based on new onset transaminitis. Meds Home Medications and Allergies Allergies Allergy/AdvReac Type Severity Reaction Status Date / Time No Known Drug Allergies Allergy Verified 11/27/24 16:48 OB - H&P: Exam Physical Exam: Vital signs: Temp Pulse Resp BP Pulse Ox O2 Del Method 98.2 F 95 16 129/92 H 95 Room Air 11/27/24 16:48 11/27/24 16:48 11/27/24 16:48 11/27/24 19:02 11/27/24 16:48 11/27/24 16:48 Constitutional: Constitutional: no acute distress Routine HEENT Exam: Head: Present normal inspection Routine Respiratory Exam: Respiratory: Present CTA bilaterally Routine Cardiovascular Exam: Cardiovascular: RRR Routine Abdominal Exam: Abdominal: Present soft; Absent tenderness Detailed Labor and Delivery Exam: Patient Gravid: no Routine Extremities Exam: Extremities: Present normal inspection and pedal edema (3+) Routine Psychiatric Exam: Present normal affect OB - Results Labs Labs: Short CBC 11/27/24 Range/Units 18:19 WBC 11.36 H (4.50-11.00) K/uL Hgb 13.9 (12.0-16.0) gm/dL Hct 40.3 (33.0-51.0) % Plt Count 231 (140-440) K/uL BMP 11/27/24 18:19 Sodium 137 Potassium 3.7 Chloride 104 Carbon Dioxide 25 BUN 11 Creatinine 0.7 Glucose 118 H Calcium 9.0 Liver Function 11/27/24 Range/Units 18:19 Total Bilirubin 0.3 (0.1-1.5) mg/dL Direct Bilirubin 0.1 (0.0-0.5) mg/dL AST 166 H (12-35) U/L ALT 164 H (4-35) U/L Alkaline Phosphatase 121 (40-150) U/L Albumin 3.7 (3.3-5.0) g/dL Urine 11/27/24 Range/Units 18:09 Urine Color Yellow (Yellow) Urine Appearance Clear (Clear) Urine pH 6.5 (5.0-8.5) Ur Specific [place] 1.015 (1.000-1.030) Urine Protein Negative (Negative) Urine Glucose (UA) Negative (Negative) OB - Problem Based A/P Additional Plan (1) Pre-eclampsia in period: Problem details: with severe features based on new onset transaminitis Status: Acute (2) Transaminitis: Problem details: AST 166, ALT 164 Status: Acute Plan 1. Re-admit to the Center. 2. IV magnesium sulfate, 4g load, then 2g/hour infusion for 24 hours. 3. Start nifedipine ER 30 mg daily. She indicates that she briefly used a beta dixon in the past and didn't feel well on the medication. 4. Repeal labs q6 hours while on mag. 5. We discussed pre-eclampsia, severe features, indications for magnesium sulfate prophylaxis, antihypertensive medications and the anticipated hospital stay. Her questions were answered.
[2024-11-27] MEDS: LACTATED RINGERS 1000 ML 1,000 ML 50 ML IV (19:57)
[2024-11-27] MEDS: MAGNESIUM IV 4 GM/100 ML PIGGYBACK IVPB (19:57)
[2024-11-27] MEDS: MAGNESIUM Infusion 40 GM/1,000 ML IV.SOLN IVPB (20:35)
[2024-11-27] MEDS: ACETAMINOPHEN 500 MG TABLET 1000 MG PO (22:26)
[2024-11-28] VITALS (10 sets, daily range): BP systolic 103–138; BP diastolic 65–87; PULSE 80–110; RESP 16–18; TEMP 36.6–37.1; O2SAT 96–100
[2024-11-28 02:57] LABS: Hematocrit* 37.3 % (33.0-51.0); Hemoglobin* 13.1 gm/dL (12.0-16.0); Mean Corpuscular HGB Conc 35 gm/dL (32-36); Mean Corpuscular Hemoglobin 32 pg (26-34); Mean Corpuscular Volume 90 fL (80-100); Red Blood Count* 4.13 m/uL (4.00-5.20); White Blood Count* 10.74 K/uL (4.50-11.00)
[2024-11-28 03:00] LABS: Slide Review Reflex No
[2024-11-28 03:20] LABS: Alanine Aminotransferase* 134 U/L (4-35); Aspartate Amino Transferase* 120 U/L (12-35); Blood Urea Nitrogen* 10 mg/dL (5-24); Creatinine* 0.5 mg/dL (0.5-1.5); Est. Creatinine Clearance* 142.07; Estimated Glomerular Filt Rate 129 ml/min
[2024-11-28] MEDS: ACETAMINOPHEN 500 MG TABLET 1000 MG PO ×2 (04:59→19:53)
[2024-11-28 09:03] LABS: Hematocrit* 38.5 % (33.0-51.0); Hemoglobin* 13.6 gm/dL (12.0-16.0); Mean Corpuscular HGB Conc 35 gm/dL (32-36); Mean Corpuscular Hemoglobin 32 pg (26-34); Mean Corpuscular Volume 91 fL (80-100); Red Blood Count* 4.24 m/uL (4.00-5.20); Slide Review Reflex No; White Blood Count* 9.07 K/uL (4.50-11.00)
[2024-11-28] MEDS: LACTATED RINGERS 1000 ML 1,000 ML 75 ML IV (09:13)
[2024-11-28 09:24] LABS: Alanine Aminotransferase* 124 U/L (4-35); Aspartate Amino Transferase* 100 U/L (12-35); Blood Urea Nitrogen* 8 mg/dL (5-24); Creatinine* 0.6 mg/dL (0.5-1.5); Est. Creatinine Clearance* 118.39; Estimated Glomerular Filt Rate 124 ml/min
--- NOTE | 2024-11-28 09:41 | PM.OBPNVD1 ---
OB - PN:Subj Subjective Date Seen: 11/28/24 Interval history: Dianelys is a 29-year-old [id number] woman who is day 4 status post normal spontaneous vaginal delivery at 38 weeks, 3 days gestation, readmitted yesterday for preeclampsia with severe features by criteria of blood pressure and transaminitis. Her labor was induced for gestational hypertension. She was started on magnesium sulfate for seizure prophylaxis last night. She was started on nifedipine ER 30 mg last night. Narrative: This morning, she reports that she is feeling OK. She had racing heart and flushing after use of nifedipine ER last night, and asked to hold this morning's dose. She is more open to taking labetalol now. She had previously used metoprolol for palpitations and did not tolerate it. She denies any headache or SOB. She is planning to breastfeed at some point and plans to pump today. Baby Bart is doing better and will likely be discharged tomorrow. Michaelle reports only scant bleeding. OB - PN: Obj Exam Physical Exam: Vital signs: Temp Pulse Resp BP Pulse Ox O2 Del Method 98.0 F 81 16 114/72 96 Room Air 11/28/24 06:41 11/28/24 06:41 11/28/24 06:41 11/28/24 06:41 11/28/24 06:41 11/28/24 06:41 Blood pressures were elevated as high as 150s over 100s last night. Since midnight, she has been normotensive. She has had 3600 mL out in urine output since admission. Narrative: General: Pleasant, no acute distress Heart: Regular rate and rhythm, no murmur or gallop Lungs: Clear to auscultation bilaterally Abdomen: Soft, nontender, fundus well below umbilicus Lower extremities: trace bilateral edema, no erythema OB - PN: Obj Data Labs Labs: Laboratory Results - last 24 hr 11/27/24 11/27/24 11/27/24 18:09 18:19 22:48 WBC 11.36 H RBC 4.38 Hgb 13.9 Hct 40.3 MCV 92 MCH 32 MCHC 35 RDW Coeff of Chung 11.9 Plt Count 231 Neut % (Auto) 81.6 H Lymph % (Auto) 9.9 L [place] % (Auto) 5.1 Eos % (Auto) 2.9 Baso % (Auto) 0.2 Neut # (Auto) 9.30 H Lymph # (Auto) 1.10 [place] # (Auto) 0.60 Eos # (Auto) 0.30 Baso # (Auto) 0.00 Abs Immat Gran (auto) 0.00 Imm/Tot Granulo (auto) 0.3 Sodium 137 Potassium 3.7 Chloride 104 Carbon Dioxide 25 Anion Gap 8 BUN 11 Creatinine 0.7 Estimated Creat Clear 101.48 Estimated GFR 119 Glucose 118 H Uric Acid 6.1 Calcium 9.0 Magnesium 4.1 H* Total Bilirubin 0.3 Direct Bilirubin 0.1 AST 166 H ALT 164 H Alkaline Phosphatase 121 Total Protein 7.3 Albumin 3.7 Urine Color Yellow Urine Appearance Clear Urine pH 6.5 Ur Specific [place] 1.015 Urine Protein Negative Urine Glucose (UA) Negative Urine Ketones Negative Urine Blood 2+ A Urine Nitrite Negative Urine Bilirubin Negative Urine Urobilinogen 0.2 Ur Leukocyte Esterase 1+ A Urine RBC 0-2 Urine WBC 5-10 A Ur Squamous Epith Cells Few Urine Bacteria None 11/28/24 11/28/24 02:50 08:55 WBC 10.74 9.07 RBC 4.13 4.24 Hgb 13.1 13.6 Hct 37.3 38.5 MCV 90 91 MCH 32 32 MCHC 35 35 RDW Coeff of Chung Plt Count 239 239 Neut % (Auto) Lymph % (Auto) [place] % (Auto) Eos % (Auto) Baso % (Auto) Neut # (Auto) Lymph # (Auto) [place] # (Auto) Eos # (Auto) Baso # (Auto) Abs Immat Gran (auto) Imm/Tot Granulo (auto) Sodium Potassium Chloride Carbon Dioxide Anion Gap BUN 10 8 Creatinine 0.5 0.6 Estimated Creat Clear 142.07 118.39 Estimated GFR 129 124 Glucose Uric Acid Calcium Magnesium 4.9 H* 5.8 H* Total Bilirubin Direct Bilirubin AST 120 H 100 H ALT 134 H 124 H Alkaline Phosphatase Total Protein Albumin Urine Color Urine Appearance Urine pH Ur Specific [place] Urine Protein Urine Glucose (UA) Urine Ketones Urine Blood Urine Nitrite Urine Bilirubin Urine Urobilinogen Ur Leukocyte Esterase Urine RBC Urine WBC Ur Squamous Epith Cells Urine Bacteria OB - PN: A/P Delivery Assessment and Plan (1) Pre-eclampsia in period: Problem details: with severe features based on new onset transaminitis Status: Acute Assessment and Plan: Blood pressures normal since midnight. Massive diuresis since readmission. Transaminases trending downward. Continue magnesium for 24 hours . Continue HELLP labs Q6H during this time. Given intolerance of nifedipine ER side effects, begin labetalol 100 mg BID. Continue to follow BPs Q 2 hrs after cessation of magnesium overnight. Provided that BPs are well managed, she may be discharged home tomorrow. (2) Transaminitis: Problem details: AST 166, ALT 164 Status: Acute
[2024-11-28] MEDS: LABETALOL HCL 100 MG TABLET PO ×2 (11:29→21:06)
[2024-11-28] MEDS: IBUPROFEN 600 MG TABLET PO (11:30)
[2024-11-28 14:35] LABS: Hematocrit* 38.8 % (33.0-51.0); Hemoglobin* 13.5 gm/dL (12.0-16.0); Mean Corpuscular HGB Conc 35 gm/dL (32-36); Mean Corpuscular Hemoglobin 32 pg (26-34); Mean Corpuscular Volume 92 fL (80-100); Red Blood Count* 4.23 m/uL (4.00-5.20); White Blood Count* 8.90 K/uL (4.50-11.00)
[2024-11-28 14:36] LABS: Slide Review Reflex No
[2024-11-28 14:55] LABS: Alanine Aminotransferase* 114 U/L (4-35); Aspartate Amino Transferase* 92 U/L (12-35); Blood Urea Nitrogen* 9 mg/dL (5-24); Creatinine* 0.7 mg/dL (0.5-1.5); Est. Creatinine Clearance* 101.48; Estimated Glomerular Filt Rate 119 ml/min
[2024-11-28] MEDS: MAGNESIUM Infusion 40 GM/1,000 ML IV.SOLN IVPB (17:04)
[2024-11-28 20:03] LABS: Hematocrit* 38.8 % (33.0-51.0); Hemoglobin* 13.3 gm/dL (12.0-16.0); Mean Corpuscular HGB Conc 34 gm/dL (32-36); Mean Corpuscular Hemoglobin 32 pg (26-34); Mean Corpuscular Volume 93 fL (80-100); Red Blood Count* 4.18 m/uL (4.00-5.20); Slide Review Reflex No; White Blood Count* 8.53 K/uL (4.50-11.00)
[2024-11-28 20:16] LABS: Blood Urea Nitrogen* 14 mg/dL (5-24); Creatinine* 0.7 mg/dL (0.5-1.5); Est. Creatinine Clearance* 101.48; Estimated Glomerular Filt Rate 119 ml/min
[2024-11-28 20:17] LABS: Alanine Aminotransferase* 118 U/L (4-35); Aspartate Amino Transferase* 82 U/L (12-35)
[2024-11-29] VITALS (16 sets, daily range): BP systolic 121–161; BP diastolic 80–109; PULSE 64–82; RESP 16–20; TEMP 36.7–36.8; O2SAT 96–100
[2024-11-29] MEDS: IBUPROFEN 600 MG TABLET PO (01:30)
--- NOTE | 2024-11-29 07:16 | W.PM.OB.MED ---
DS: Providers Provider Time Seen by Provider: 07:16 Date Seen: 11/29/24 Date of admission: 11/27/24 19:27 Primary care physician: Not a Local Provider Admitting Clinician: Shyanne Walton MD Attending Physician on discharge: Shyanne Walton MD Date of Discharge: 11/29/24 DS: Diagnosis Discharge Diagnosis (1) Pre-eclampsia in period: Status: Acute Problem details: with severe features based on new onset transaminitis (2) Transaminitis: Status: Acute Problem details: AST 82, ALT 118 Discharge Plan Discharge Disposition: Home, Self-Care Date of Admission: 11/27/24 19:27 Attending Provider on Discharge: Ami Pelletier Primary Care Provider: Provider,Not a Local Condition: Stable Anticipated Discharge Date/Time: 11/29/24 08:18 Discharge Medications: New labetalol 100 mg Tablet 100 mg PO BID 30 Days Qty: 60 0RF Discharge Orders: Discharge Order (Routine); Ordered 11/29/24 Ordered By: Ami Pelletier Patient Education: Preeclampsia and Eclampsia After Delivery (GEN) Follow Up Appointments: Provider,Not a Local [Primary Care Provider, Family Practice] Forms: Patient Belongings, [employer] Info Instructions Discharge Comments: F/u in clinic in 3-5 days for blood pressure check and possible medication adjustments Hospital Course Course Hospital Course: Dianelys is a 29-year-old [id number] woman who is day 5 status post normal spontaneous vaginal delivery at 38 weeks, 3 days gestation, readmitted on for preeclampsia with severe features by mild ranging blood pressure and transaminitis. Her labor was induced for gestational hypertension. She is s/p 24 hours of magnesium sulfate and 24 hours of blood pressure monitoring. She was started on nifedipine ER 30 mg which she did not tolerate due to palpitation and flushing. She was switched to labetalol 100 mg BID Narrative: Overnight patient had no complants. Her pain is well controlled on oral pain medication. She is tolerating a regular diet. She has passed flatus/had BM. She is ambulating without difficulty. Lochia is scant. She is urinating without adkins. Patient denies chest pain, SOB, n/v, headache, RUQ pain, vision changes, dizziness. Currently, pumping but planning on . Baby Bart is doing better and anticipated to be discharged today. Discussed with patient that her BP has been wnl >24 hours. Transaminitis is down trending. Althought I don't anticipate complete resolution until 6 weeks . Pre-e labs on 11/28: plt 247, Cr 0.7, AST 82, ALT 118 Plan for home blood pressure checks BID prior to taking her labetalol. F/u in 3-5 days for blood pressure check and medication adjustment. Labs Labs: Laboratory Tests 11/28/24 11/28/24 11/28/24 Range/Units 19:54 14:03 08:55 WBC 8.53 8.90 9.07 (4.50-11.00) K/uL RBC 4.18 4.23 4.24 (4.00-5.20) m/uL Hgb 13.3 13.5 13.6 (12.0-16.0) gm/dL Hct 38.8 38.8 38.5 (33.0-51.0) % MCV 93 92 91 (80-100) fL MCH 32 32 32 (26-34) pg MCHC 34 35 35 (32-36) gm/dL RDW Coeff of Chung (11.5-15.5) % Plt Count 247 243 239 (140-440) K/uL Neut % (Auto) (42.0-72.0) % Lymph % (Auto) (20-44) % [place] % (Auto) (0.0-11.0) % Eos % (Auto) (0.0-7.0) % Baso % (Auto) (0.0-3.0) % Neut # (Auto) (1.7-7.0) K/uL Lymph # (Auto) (0.90-2.90) K/uL [place] # (Auto) (0.00-0.90) K/UL Eos # (Auto) (0.00-0.50) K/uL Baso # (Auto) (0.00-0.30) K/uL Abs Immat Gran (auto) (0.00-0.30) K/uL Imm/Tot Granulo (auto) % Sodium (135-149) mmol/L Potassium (3.6-5.1) mmol/L Chloride (96-114) mmol/L Carbon Dioxide (20-32) mmol/L Anion Gap (7-15) mEq/L BUN 14 9 8 (5-24) mg/dL Creatinine 0.7 0.7 0.6 (0.5-1.5) mg/dL Estimated Creat Clear 101.48 101.48 118.39 Estimated GFR 119 119 124 ml/min Glucose (60-115) mg/dL Uric Acid (2.2-8.4) mg/dL Calcium (8.4-10.6) mg/dL Magnesium 5.8 H* 5.3 H* 5.8 H* (1.5-2.6) mg/dL Total Bilirubin (0.1-1.5) mg/dL Direct Bilirubin (0.0-0.5) mg/dL AST 82 H 92 H 100 H (12-35) U/L ALT 118 H 114 H 124 H (4-35) U/L Alkaline Phosphatase (40-150) U/L Total Protein (6.0-8.3) g/dL Albumin (3.3-5.0) g/dL Urine Color (Yellow) Urine Appearance (Clear) Urine pH (5.0-8.5) Ur Specific [place] (1.000-1.030) Urine Protein (Negative) Urine Glucose (UA) (Negative) Urine Ketones (Negative) Urine Blood (Negative) Urine Nitrite (Negative) Urine Bilirubin (Negative) Urine Urobilinogen (0.2-1.0) Ur Leukocyte Esterase (Negative) Urine RBC (0-2) Urine WBC (0-5) Ur Squamous Epith Cells (None-Few) Urine Bacteria (None) 11/28/24 11/27/24 11/27/24 Range/Units 02:50 22:48 18:19 WBC 10.74 11.36 H (4.50-11.00) K/uL RBC 4.13 4.38 (4.00-5.20) m/uL Hgb 13.1 13.9 (12.0-16.0) gm/dL Hct 37.3 40.3 (33.0-51.0) % MCV 90 92 (80-100) fL MCH 32 32 (26-34) pg MCHC 35 35 (32-36) gm/dL RDW Coeff of Chung 11.9 (11.5-15.5) % Plt Count 239 231 (140-440) K/uL Neut % (Auto) 81.6 H (42.0-72.0) % Lymph % (Auto) 9.9 L (20-44) % [place] % (Auto) 5.1 (0.0-11.0) % Eos % (Auto) 2.9 (0.0-7.0) % Baso % (Auto) 0.2 (0.0-3.0) % Neut # (Auto) 9.30 H (1.7-7.0) K/uL Lymph # (Auto) 1.10 (0.90-2.90) K/uL [place] # (Auto) 0.60 (0.00-0.90) K/UL Eos # (Auto) 0.30 (0.00-0.50) K/uL Baso # (Auto) 0.00 (0.00-0.30) K/uL Abs Immat Gran (auto) 0.00 (0.00-0.30) K/uL Imm/Tot Granulo (auto) 0.3 % Sodium 137 (135-149) mmol/L Potassium 3.7 (3.6-5.1) mmol/L Chloride 104 (96-114) mmol/L Carbon Dioxide 25 (20-32) mmol/L Anion Gap 8 (7-15) mEq/L BUN 10 11 (5-24) mg/dL Creatinine 0.5 0.7 (0.5-1.5) mg/dL Estimated Creat Clear 142.07 101.48 Estimated GFR 129 119 ml/min Glucose 118 H (60-115) mg/dL Uric Acid 6.1 (2.2-8.4) mg/dL Calcium 9.0 (8.4-10.6) mg/dL Magnesium 4.9 H* 4.1 H* (1.5-2.6) mg/dL Total Bilirubin 0.3 (0.1-1.5) mg/dL Direct Bilirubin 0.1 (0.0-0.5) mg/dL AST 120 H 166 H (12-35) U/L ALT 134 H 164 H (4-35) U/L Alkaline Phosphatase 121 (40-150) U/L Total Protein 7.3 (6.0-8.3) g/dL Albumin 3.7 (3.3-5.0) g/dL Urine Color (Yellow) Urine Appearance (Clear) Urine pH (5.0-8.5) Ur Specific [place] (1.000-1.030) Urine Protein (Negative) Urine Glucose (UA) (Negative) Urine Ketones (Negative) Urine Blood (Negative) Urine Nitrite (Negative) Urine Bilirubin (Negative) Urine Urobilinogen (0.2-1.0) Ur Leukocyte Esterase (Negative) Urine RBC (0-2) Urine WBC (0-5) Ur Squamous Epith Cells (None-Few) Urine Bacteria (None) 11/27/24 Range/Units 18:09 WBC (4.50-11.00) K/uL RBC (4.00-5.20) m/uL Hgb (12.0-16.0) gm/dL Hct (33.0-51.0) % MCV (80-100) fL MCH (26-34) pg MCHC (32-36) gm/dL RDW Coeff of Chung (11.5-15.5) % Plt Count (140-440) K/uL Neut % (Auto) (42.0-72.0) % Lymph % (Auto) (20-44) % [place] % (Auto) (0.0-11.0) % Eos % (Auto) (0.0-7.0) % Baso % (Auto) (0.0-3.0) % Neut # (Auto) (1.7-7.0) K/uL Lymph # (Auto) (0.90-2.90) K/uL [place] # (Auto) (0.00-0.90) K/UL Eos # (Auto) (0.00-0.50) K/uL Baso # (Auto) (0.00-0.30) K/uL Abs Immat Gran (auto) (0.00-0.30) K/uL Imm/Tot Granulo (auto) % Sodium (135-149) mmol/L Potassium (3.6-5.1) mmol/L Chloride (96-114) mmol/L Carbon Dioxide (20-32) mmol/L Anion Gap (7-15) mEq/L BUN (5-24) mg/dL Creatinine (0.5-1.5) mg/dL Estimated Creat Clear Estimated GFR ml/min Glucose (60-115) mg/dL Uric Acid (2.2-8.4) mg/dL Calcium (8.4-10.6) mg/dL Magnesium (1.5-2.6) mg/dL Total Bilirubin (0.1-1.5) mg/dL Direct Bilirubin (0.0-0.5) mg/dL AST (12-35) U/L ALT (4-35) U/L Alkaline Phosphatase (40-150) U/L Total Protein (6.0-8.3) g/dL Albumin (3.3-5.0) g/dL Urine Color Yellow (Yellow) Urine Appearance Clear (Clear) Urine pH 6.5 (5.0-8.5) Ur Specific [place] 1.015 (1.000-1.030) Urine Protein Negative (Negative) Urine Glucose (UA) Negative (Negative) Urine Ketones Negative (Negative) Urine Blood 2+ A (Negative) Urine Nitrite Negative (Negative) Urine Bilirubin Negative (Negative) Urine Urobilinogen 0.2 (0.2-1.0) Ur Leukocyte Esterase 1+ A (Negative) Urine RBC 0-2 (0-2) Urine WBC 5-10 A (0-5) Ur Squamous Epith Cells Few (None-Few) Urine Bacteria None (None) OB Problem List Additional Plan (1) Pre-eclampsia in period: Problem details: with severe features based on new onset transaminitis Status: Acute (2) Transaminitis: Problem details: AST 82, ALT 118 Status: Acute DS: Summary Vital Signs Vital Signs: Vital Signs Temp Pulse Resp BP Pulse Ox O2 Del Method 11/29/24 05:00 98.0 F 80 16 121/83 98 Room Air 11/29/24 00:00 98.0 F 82 16 127/84 98 Room Air 11/28/24 20:00 98.0 F 80 16 138/86 98 Room Air 11/28/24 17:30 98.3 F 87 16 128/87 98 Room Air 11/28/24 14:45 98.1 F 82 16 119/77 98 Room Air 11/28/24 12:45 98.1 F 97 16 127/86 100 Room Air 11/28/24 10:45 98.4 F 86 16 122/76 97 Room Air 11/28/24 08:45 98.3 F 90 16 124/83 97 Room Air Discharge Examination Physical Examination findings: Physical exam: General: No acute distress Psych: Alert and oriented x4, full affect HEENT: Normocephalic, atraumatic Heart: Regular rate and rhythm, no murmur rub or gallop Lungs: Clear to auscultation bilaterally Abdomen: Normoactive bowel sounds, soft, no tenderness, rebound, or guarding. Uterus firm, 3cm below umbilicus Skin: No lesions or rashes Lower extremities: 1+bilateral lower extremity edema Pelvic exam: Scant bleeding on pad
[2024-11-29] MEDS: ACETAMINOPHEN 500 MG TABLET 1000 MG PO (09:13)
[2024-11-29] MEDS: LABETALOL HCL 100 MG TABLET PO ×3 (09:13→21:08)
[2024-11-29] MEDS: LABETALOL HCL 5 MG/ML inj IVP (17:44)
[2024-11-29 18:28] LABS: Hematocrit* 39.0 % (33.0-51.0); Hemoglobin* 13.0 gm/dL (12.0-16.0); Mean Corpuscular HGB Conc 33 gm/dL (32-36); Mean Corpuscular Hemoglobin 31 pg (26-34); Mean Corpuscular Volume 94 fL (80-100); Red Blood Count* 4.15 m/uL (4.00-5.20); White Blood Count* 7.97 K/uL (4.50-11.00)
[2024-11-29 18:30] LABS: Slide Review Reflex No
[2024-11-29 18:44] LABS: Alanine Aminotransferase* 77 U/L (4-35); Aspartate Amino Transferase* 45 U/L (12-35); Blood Urea Nitrogen* 14 mg/dL (5-24); Creatinine* 0.7 mg/dL (0.5-1.5); Est. Creatinine Clearance* 101.48; Estimated Glomerular Filt Rate 119 ml/min
[2024-11-29] MEDS: LABETALOL HCL 100 MG TABLET 200 MG PO (22:03)
[2024-11-30 00:14] VITALS: BP 147/88; PULSE 85; RESP 16; TEMP 36.6; O2SAT 96
[2024-11-30 03:21] VITALS: BP 136/84; PULSE 71; RESP 16; O2SAT 96
[2024-11-30 07:00] VITALS: BP 136/85; PULSE 73; RESP 16; TEMP 36.6; O2SAT 98
[2024-11-30 07:56] VITALS: BP 137/79; PULSE 70; RESP 16; O2SAT 98
[2024-11-30] MEDS: LABETALOL HCL 100 MG TABLET 200 MG PO (07:57)
--- NOTE | 2024-11-30 08:40 | P.DS_ITS ---
DS: Providers Provider Time Seen by Provider: 08:40 Date Seen: 11/30/24 Date of admission: 11/27/24 19:27 Primary care physician: Not a Local Provider Admitting Clinician: Shyanne Walton MD Attending Physician on discharge: Shyanne Walton MD DS: Diagnosis Discharge Diagnosis (1) Pre-eclampsia in period: Status: Acute Problem details: with severe features based on new onset transaminitis (2) Transaminitis: Status: Acute Problem details: AST 82, ALT 118 - interval improvement noted throughout hospitalization Discharge Plan Discharge Disposition: Home, Self-Care Date of Admission: 11/27/24 19:27 Attending Provider on Discharge: Ami Pelletier Primary Care Provider: Provider,Not a Local Condition: Stable Anticipated Discharge Date/Time: 11/29/24 08:18 Discharge Medications: New labetalol 100 mg Tablet 200 mg PO TID Qty: 180 0RF Discharge Orders: Discharge Order (Routine); Ordered 11/30/24 Ordered By: Nadine Martel Consulting provider completed their portion of the discharge: Yes Patient Education: Preeclampsia and Eclampsia After Delivery (GEN) Additional Instructions: BP checks twice a day. If any value over 160/110, go to the ED. If more than 25% over 140/90, call the clinic. Follow Up Appointments: Provider,Not a Local [Primary Care Provider, Family Practice] Forms: Patient Belongings, [facility] Info Instructions Discharge Comments: F/u in clinic in 3-5 days for blood pressure check and possible medication adjustments Hospital Course Course Hospital Course: Dianelys is a 29-year-old [id number] woman who is day 6 status post normal spontaneous vaginal delivery at 38 weeks, 3 days gestation, readmitted on for preeclampsia with severe features by mild ranging blood pressure and transaminitis. Her labor was induced for gestational hypertension. She is s/p 24 hours of magnesium sulfate and 24 hours of blood pressure monitoring. She was started on nifedipine ER 30 mg which she did not tolerate due to palpitation and flushing. She was switched to labetalol 100 mg BID > increased to labetolol 100mg TID then 200mg TID the evening of 11/29. Patient had been planning to discharge to home yesterday evening. Prior to dismissal, she had sustained severe range blood pressures necessitating treatment. 10 mg of IV labetalol was administered (half of the anticipated dose) but BP was noted to improve to mild range with this, her long acting regimen was subsequently revised. Recommend continued inpatient stay for observation and BP medication titration. Patient is feeling well today. Denies headaches, vision changes or right upper quadrant pain. She has been entirely normotensive since she started labetalol 200 mg t.i.d., 1st dose was yesterday at about 2200. She has no significant abdominal or pelvic pain. Lochia is minimal, transition to more yellow in color. Tolerating p.o. intake without nausea vomiting. Void spontaneously, adequate output. No bowel concerns. She continues to have lower extremity edema. Last preE labs yesterday evening continued to show improvement - with AST of 45 (max 166) and ALT of 77 (max 164). Platelets and creatinine remained normal. Plan for home blood pressure checks BID prior to taking her labetalol. Continue labetolol 200mg TID. F/u in 3-5 days for blood pressure check and medication adjustment. She has a visit on 12/04 scheduled. Labs Labs: Laboratory Tests 11/29/24 11/28/24 11/28/24 Range/Units 18:20 19:54 14:03 WBC 7.97 8.53 8.90 (4.50-11.00) K/uL RBC 4.15 4.18 4.23 (4.00-5.20) m/uL Hgb 13.0 13.3 13.5 (12.0-16.0) gm/dL Hct 39.0 38.8 38.8 (33.0-51.0) % MCV 94 93 92 (80-100) fL MCH 31 32 32 (26-34) pg MCHC 33 34 35 (32-36) gm/dL RDW Coeff of Chung (11.5-15.5) % Plt Count 231 247 243 (140-440) K/uL Neut % (Auto) (42.0-72.0) % Lymph % (Auto) (20-44) % [place] % (Auto) (0.0-11.0) % Eos % (Auto) (0.0-7.0) % Baso % (Auto) (0.0-3.0) % Neut # (Auto) (1.7-7.0) K/uL Lymph # (Auto) (0.90-2.90) K/uL [place] # (Auto) (0.00-0.90) K/UL Eos # (Auto) (0.00-0.50) K/uL Baso # (Auto) (0.00-0.30) K/uL Abs Immat Gran (auto) (0.00-0.30) K/uL Imm/Tot Granulo (auto) % Sodium (135-149) mmol/L Potassium (3.6-5.1) mmol/L Chloride (96-114) mmol/L Carbon Dioxide (20-32) mmol/L Anion Gap (7-15) mEq/L BUN 14 14 9 (5-24) mg/dL Creatinine 0.7 0.7 0.7 (0.5-1.5) mg/dL Estimated Creat Clear 101.48 101.48 101.48 Estimated GFR 119 119 119 ml/min Glucose (60-115) mg/dL Uric Acid (2.2-8.4) mg/dL Calcium (8.4-10.6) mg/dL Magnesium 5.8 H* 5.3 H* (1.5-2.6) mg/dL Total Bilirubin (0.1-1.5) mg/dL Direct Bilirubin (0.0-0.5) mg/dL AST 45 H 82 H 92 H (12-35) U/L ALT 77 H 118 H 114 H (4-35) U/L Alkaline Phosphatase (40-150) U/L Total Protein (6.0-8.3) g/dL Albumin (3.3-5.0) g/dL Urine Color (Yellow) Urine Appearance (Clear) Urine pH (5.0-8.5) Ur Specific [place] (1.000-1.030) Urine Protein (Negative) Urine Glucose (UA) (Negative) Urine Ketones (Negative) Urine Blood (Negative) Urine Nitrite (Negative) Urine Bilirubin (Negative) Urine Urobilinogen (0.2-1.0) Ur Leukocyte Esterase (Negative) Urine RBC (0-2) Urine WBC (0-5) Ur Squamous Epith Cells (None-Few) Urine Bacteria (None) 11/28/24 11/28/24 11/27/24 Range/Units 08:55 02:50 22:48 WBC 9.07 10.74 (4.50-11.00) K/uL RBC 4.24 4.13 (4.00-5.20) m/uL Hgb 13.6 13.1 (12.0-16.0) gm/dL Hct 38.5 37.3 (33.0-51.0) % MCV 91 90 (80-100) fL MCH 32 32 (26-34) pg MCHC 35 35 (32-36) gm/dL RDW Coeff of Chung (11.5-15.5) % Plt Count 239 239 (140-440) K/uL Neut % (Auto) (42.0-72.0) % Lymph % (Auto) (20-44) % [place] % (Auto) (0.0-11.0) % Eos % (Auto) (0.0-7.0) % Baso % (Auto) (0.0-3.0) % Neut # (Auto) (1.7-7.0) K/uL Lymph # (Auto) (0.90-2.90) K/uL [place] # (Auto) (0.00-0.90) K/UL Eos # (Auto) (0.00-0.50) K/uL Baso # (Auto) (0.00-0.30) K/uL Abs Immat Gran (auto) (0.00-0.30) K/uL Imm/Tot Granulo (auto) % Sodium (135-149) mmol/L Potassium (3.6-5.1) mmol/L Chloride (96-114) mmol/L Carbon Dioxide (20-32) mmol/L Anion Gap (7-15) mEq/L BUN 8 10 (5-24) mg/dL Creatinine 0.6 0.5 (0.5-1.5) mg/dL Estimated Creat Clear 118.39 142.07 Estimated GFR 124 129 ml/min Glucose (60-115) mg/dL Uric Acid (2.2-8.4) mg/dL Calcium (8.4-10.6) mg/dL Magnesium 5.8 H* 4.9 H* 4.1 H* (1.5-2.6) mg/dL Total Bilirubin (0.1-1.5) mg/dL Direct Bilirubin (0.0-0.5) mg/dL AST 100 H 120 H (12-35) U/L ALT 124 H 134 H (4-35) U/L Alkaline Phosphatase (40-150) U/L Total Protein (6.0-8.3) g/dL Albumin (3.3-5.0) g/dL Urine Color (Yellow) Urine Appearance (Clear) Urine pH (5.0-8.5) Ur Specific [place] (1.000-1.030) Urine Protein (Negative) Urine Glucose (UA) (Negative) Urine Ketones (Negative) Urine Blood (Negative) Urine Nitrite (Negative) Urine Bilirubin (Negative) Urine Urobilinogen (0.2-1.0) Ur Leukocyte Esterase (Negative) Urine RBC (0-2) Urine WBC (0-5) Ur Squamous Epith Cells (None-Few) Urine Bacteria (None) 11/27/24 11/27/24 Range/Units 18:19 18:09 WBC 11.36 H (4.50-11.00) K/uL RBC 4.38 (4.00-5.20) m/uL Hgb 13.9 (12.0-16.0) gm/dL Hct 40.3 (33.0-51.0) % MCV 92 (80-100) fL MCH 32 (26-34) pg MCHC 35 (32-36) gm/dL RDW Coeff of Chung 11.9 (11.5-15.5) % Plt Count 231 (140-440) K/uL Neut % (Auto) 81.6 H (42.0-72.0) % Lymph % (Auto) 9.9 L (20-44) % [place] % (Auto) 5.1 (0.0-11.0) % Eos % (Auto) 2.9 (0.0-7.0) % Baso % (Auto) 0.2 (0.0-3.0) % Neut # (Auto) 9.30 H (1.7-7.0) K/uL Lymph # (Auto) 1.10 (0.90-2.90) K/uL [place] # (Auto) 0.60 (0.00-0.90) K/UL Eos # (Auto) 0.30 (0.00-0.50) K/uL Baso # (Auto) 0.00 (0.00-0.30) K/uL Abs Immat Gran (auto) 0.00 (0.00-0.30) K/uL Imm/Tot Granulo (auto) 0.3 % Sodium 137 (135-149) mmol/L Potassium 3.7 (3.6-5.1) mmol/L Chloride 104 (96-114) mmol/L Carbon Dioxide 25 (20-32) mmol/L Anion Gap 8 (7-15) mEq/L BUN 11 (5-24) mg/dL Creatinine 0.7 (0.5-1.5) mg/dL Estimated Creat Clear 101.48 Estimated GFR 119 ml/min Glucose 118 H (60-115) mg/dL Uric Acid 6.1 (2.2-8.4) mg/dL Calcium 9.0 (8.4-10.6) mg/dL Magnesium (1.5-2.6) mg/dL Total Bilirubin 0.3 (0.1-1.5) mg/dL Direct Bilirubin 0.1 (0.0-0.5) mg/dL AST 166 H (12-35) U/L ALT 164 H (4-35) U/L Alkaline Phosphatase 121 (40-150) U/L Total Protein 7.3 (6.0-8.3) g/dL Albumin 3.7 (3.3-5.0) g/dL Urine Color Yellow (Yellow) Urine Appearance Clear (Clear) Urine pH 6.5 (5.0-8.5) Ur Specific [place] 1.015 (1.000-1.030) Urine Protein Negative (Negative) Urine Glucose (UA) Negative (Negative) Urine Ketones Negative (Negative) Urine Blood 2+ A (Negative) Urine Nitrite Negative (Negative) Urine Bilirubin Negative (Negative) Urine Urobilinogen 0.2 (0.2-1.0) Ur Leukocyte Esterase 1+ A (Negative) Urine RBC 0-2 (0-2) Urine WBC 5-10 A (0-5) Ur Squamous Epith Cells Few (None-Few) Urine Bacteria None (None) OB Problem List Additional Plan (1) Pre-eclampsia in period: Problem details: with severe features based on new onset transaminitis Status: Acute (2) Transaminitis: Problem details: AST 82, ALT 118 - interval improvement noted throughout hospitalization Status: Acute DS: Summary Vital Signs Vital Signs: Vital Signs Temp Pulse Resp BP Pulse Ox O2 Del Method 11/30/24 07:56 70 16 137/79 98 Room Air 11/30/24 07:00 97.9 F 73 16 136/85 98 Room Air 11/30/24 03:21 71 16 136/84 96 Room Air 11/30/24 00:14 97.9 F 85 16 147/88 H 96 Room Air 11/29/24 21:04 98.2 F 81 20 123/80 96 11/29/24 19:03 75 152/104 H 98 Room Air 11/29/24 18:53 76 144/91 H 99 Room Air 11/29/24 18:43 72 141/92 H 98 Room Air 11/29/24 18:33 71 133/88 98 Room Air 11/29/24 18:23 64 148/93 H 99 Room Air 11/29/24 18:13 73 148/96 H 100 Room Air 11/29/24 18:03 71 149/99 H 98 Room Air 11/29/24 17:53 80 143/95 H 11/29/24 17:33 160/109 H 11/29/24 17:15 161/101 H 11/29/24 17:00 98.1 F 76 18 149/100 H 97 Room Air 11/29/24 12:34 98.1 F 77 18 130/88 97 Room Air 11/29/24 08:52 98.3 F 73 16 131/86 98 Room Air Discharge Examination Physical Examination findings: Physical exam: General: No acute distress Psych: Alert and oriented x3, full affect Heart: Regular rate and rhythm, no murmur rub or gallop Lungs: Clear to auscultation bilaterally Abdomen: Fundus at 2 below umbilicus. Abdomen is soft and nontender. Pelvic: Inspected patient's labial laceration, by her request. They appear intact and healing appropriately. No erythema, separation or drainage. Extremities: 1+ pitting edema to the costa
[2024-11-30 09:30] VITALS: BP 128/84
[2024-11-30 11:31] VITALS: BP 143/87; PULSE 76; RESP 15; TEMP 36.7; O2SAT 97
== END 2024-11-30 13:00 | disposition home or self-care (01) | DRG 776 ==
LOC: ED 18:14 → OB 19:27
PROVIDERS: Obstetrics & Gynecology; Admitting Provider Obstetrics & Gynecology; Emergency Provider Family Medicine; Visit Provider Obstetrics & Gynecology
DX: O14.15 Severe pre-eclampsia, complicating the puerperium (principal); R74.01 Elevation of levels of liver transaminase levels; R23.2 Flushing; R00.2 Palpitations; T46.1X5A Adverse effect of calcium-channel blockers, initial encounter; Y92.230 Patient room in hospital as the place of occurrence of the external cause; F10.11 Alcohol abuse, in remission; Z87.891 Personal history of nicotine dependence
CPT/HCPCS: 36415; 80053; 81001; 82248; 82565; 82570; 83735; 84156; 84450; 84460; 84520; 84550; 85025; 85027; 87086; 99284; 99285; A9270; J3475; J7120